=== PATIENT | male | born 1990 | race Caucasian/White ===

== ENCOUNTER 2023-09-09 12:19 | Inpatient (IN) | payer OTHER ==
--- OUTSIDE RECORDS SUMMARY | 2023-09-09 12:22 | XMS REPORT | Continuity of Care Document ---
Author Name Unknown Address [address] [facility] [address] th[address] Address [address] [facility] 1 [address] [place] [address] Care Team Providers Care Customer Service Voice Name Role Phone AMRIK Attending Clinician Unavailable AMRIK Admitting Clinician Unavailable Encounters Start Date/Time End Date/Time Encounter Type Admission Type Attending Clinicians Care Facility Care Department Encounter ID Source 2021-11-14 03:07:00 2021-11-14 03:07:00 Outpatient KRISTINA KELSEY KSCARLOS [facility] [id number] J[address] [facility]
[2023-09-09] MEDS ORDERED: MORPHINE 4 MG/ML SYR ONE (12:39)
[2023-09-09] MEDS ORDERED: ONDANSETRON 4 MG/2 ML VIAL ONE (12:39)
[2023-09-09] MEDS ORDERED: NA CHLORIDE 0.9% 1,000 ML ONE ×2 (12:39→14:07)
[2023-09-09] MEDS ORDERED: KETOROLAC 30 MG/ML INJ ONE (12:39)
[2023-09-09 12:52] LABS: Absolute Basophils 0.1 K/uL (0-0.5); Absolute Lymphocytes (CBC) 1.9 K/uL (0.7-4.9); Absolute Monocytes 1.1 K/uL (0.1-1.3); Absolute Neutrophil 11.8 K/uL (1.8-8.0); Basophils % 0.3 % (0-1.3); Eosinophils % 0.2 % (0-4.4); Hematocrit 43.4 % (39.6-49.0); Hemoglobin 14.6 g/dL (13.6-17.9); Lymphocytes % 12.6 % (15.3-44.8); MCHC 33.7 g/dL (32.0-36.0); MPV 7.9 fL (7.6-11.3); Monocytes % 7.5 % (3.3-12.3); Neutrophils % 79.4 % (41.7-73.7); Platelets 394 thou/uL (152-406); RBC Red Blood Cell Count 4.56 M/uL (4.33-5.43); Red Cell Distribution Width 13.7 % (12.1-15.2)
[2023-09-09 13:10] LABS: Albumin 4.1 g/dL (3.4-5.0); Albumin/Globulin Ratio 1.1 (1.1-1.8); Anion Gap 4.5 mEq/L (5.0-15.0); Bilirubin Total 0.9 mg/dL (0.2-1.0); Globulin 3.7 g/dL (2.3-3.5); Potassium 3.5 mEq/L (3.5-5.1); Protein, Total 7.8 g/dL (6.4-8.2)
--- NOTE | 2023-09-09 13:25 | RAD REPORT ---
EXAM DESCRIPTION: CTAbdomen Pelvis W Contrast - 09/09/2023 12:55 pm CLINICAL HISTORY: Abdominal pain. ABD PAIN COMPARISON: CT ABD PELVIS W CONTRAST dated 12/10/2008 TECHNIQUE: Biphasic CT imaging of the abdomen and pelvis was performed with 100 ml non-ionic IV cont rast. All CT scans are performed using dose optimization technique as appropriate and may include automated exposure control or mA/KV adjustment according to patient size. FINDINGS: The lung bases are clear. The liver, spleen, pancreas, adrenal glands are within normal limits. There is a 5 mm stone in the pr oximal left ureter resulting in mild to moderate left hydronephrosis. Punctate calculi present calice s of the right kidney. No bowel obstruction, free air, free fluid or abscess. The appendix is not identified as a discrete structure, however, no secondary findings of appendicitis are identified. No evidence of significan t lymphadenopathy. No suspicious bony findings. IMPRESSION: 5 mm calculus is present proximal left ureter resulting in mild left hydronephrosis. Punctate calculi present calices of the right kidney. No right-sided hydronephrosis.
[2023-09-09] MEDS ORDERED: FENTANYL CITR 100 MCG/2 ML ONE (13:29)
[2023-09-09] MEDS ORDERED: HYDROMORPHONE HCL 1 MG/ML INJ ONE ×2 (14:07→15:59)
--- NOTE | 2023-09-09 14:12 | ER ---
Nurse's Notes [facility] Name: Reji Holloway Age: 33 yrs Sex: Male : 1990 Arrival Date: 09/09/2023 Time: 12:19 Bed 13 Private MD: Diagnosis: Calculus of ureter Presentation: 09/08 12:25 Chief complaint: Patient states: "I think my kidney stone is trying to pass" pt c/o as6 left flank pain. Coronavirus screen: At this time, the client does not indicate any symptoms associated with coronavirus-19. Ebola Screen: No symptoms or risks identified at this time. Initial Sepsis Screen: Does the patient meet any 2 criteria? No. Patient's initial sepsis screen is negative. Does the patient have a suspected source of infection? No. Patient's initial sepsis screen is negative. Risk Assessment: Do you want to hurt yourself or someone else? Patient reports no desire to harm self or others. Onset of symptoms was July 07, 2023. 12:25 Method Of Arrival: Ambulatory as6 12:25 Acuity: ADAL 3 as6 Triage Assessment: 12:28 General: Appears uncomfortable, Behavior is cooperative. Pain: Complains of pain in as6 left flank. Historical: - Allergies: 12:28 No Known Allergies; as6 - Home Meds: 12:28 None [Active]; as6 - PMHx: 12:28 None; as6 - PSHx: 12:28 Lithotripsy; as6 - Immunization history:: Adult Immunizations not up to date. - Infectious Disease History:: Denies. - Social history:: Smoking status: Patient reports the use of cigarette tobacco products, smokes one-half pack cigarettes per day. Screenin:48 [facility] ED Fall Risk Assessment (Adult) History of falling in the last 3 months, me1 including since admission No falls in past 3 months (0 pts) Confusion or Disorientation No (0 pts) Intoxicated or Sedated No (0 pts) Impaired Gait No (0 pts) Mobility Assist Device Used No (0 pt) Altered Elimination No (0 pt) Score/Fall Risk Level 0 - 2 = Low Risk Maintained a safe environment, Provided non-skid footwear, Hourly rounding (assess needs \\T\\ fall precautionary measures) done. Abuse screen: Denies threats or abuse. Nutritional screening: No deficits noted. Tuberculosis screening: No symptoms or risk factors identified. Assessment: 12:48 General: Appears uncomfortable, ill, well groomed, well developed, well nourished, me1 Behavior is calm, cooperative, appropriate for age, Reports left flank pain 10/10, sharp with n/v. Pain: Complains of pain in back and left flank Pain does not radiate. Pain currently is 10 out of 10 on a pain scale. Quality of pain is described as sharp, shooting, Pain began gradually, Is continuous. Neuro: Level of Consciousness is awake, alert, obeys commands, Oriented to person, place, time, situation, Appropriate for age. Cardiovascular: Capillary refill < 3 seconds Patient's skin is warm and dry. Respiratory: Airway is patent Respiratory effort is even, unlabored, Respiratory pattern is regular, symmetrical. GI: Bowel sounds present X 4 quads. Abd is soft X 4 quads Reports nausea, vomiting. : Reports pain in left flank(s). EENT: No signs and/or symptoms were reported regarding the EENT system. Derm: Skin is intact, is healthy with good turgor, Skin is pink, warm \\T\\ dry. Musculoskeletal: No signs and/or symptoms reported regarding the musculoskeletal system. 14:39 Reassessment: Patient appears in no apparent distress at this time. No changes from kc6 previously documented assessment. Patient and/or family updated on plan of care and expected duration. Pain level reassessed. Patient is alert, oriented x 3, equal unlabored respirations, skin warm/dry/pink. Patient states symptoms have not improved. 15:35 Reassessment: Patient appears in no apparent distress at this time. No changes from kc6 previously documented assessment. Patient and/or family updated on plan of care and expected duration. Pain level reassessed. Patient is alert, oriented x 3, equal unlabored respirations, skin warm/dry/pink. Vital Signs: 12:25 BP 136 / 91; Pulse 85; Resp 16 S; Temp 97.7(O); Pulse Ox 100% on R/A; Weight 68.04 kg as6 (R); Height 5 ft. 11 in. (R); Pain 7/10; 14:39 BP 146 / 90; Pulse 76; Resp 18 S; Pulse Ox 99% on R/A; kc6 15:36 Pulse 55; Resp 16 S; Pulse Ox 97% on R/A; kc6 12:25 Body Mass Index 20.92 (68.04 kg, 180.34 cm) as6 12:25 Pain Scale: Adult as6 ED Course: 12:21 Patient arrived in ED. ec2 12:21 Fabian Roberts MD is Attending Physician. ec2 12:28 Triage completed. as6 12:29 Arm band placed on. as6 12:47 CBC with Diff Sent. me1 12:47 CMP Sent. me1 12:47 Lipase Sent. me1 12:47 Initial lab(s) drawn, by me, sent to lab. Inserted saline lock: 20 gauge in right me1 antecubital area, using aseptic technique. 12:48 Patient has correct armband on for positive identification. Bed in low position. Call ny1 light in reach. Side rails up X 1. Provided Education on: POC. Verbalized understanding. . Client placed on continuous cardiac and pulse oximetry monitoring. NIBP monitoring applied. Pulse ox on. NIBP on. 12:48 No provider procedures requiring assistance completed. me1 12:56 CT Abd/Pelvis - IV Contrast Only In Process Unspecified. EDMS 13:17 Ashley Pierre, RN is Primary Nurse. kc6 14:11 David Ward is Hospitalizing Provider. ec2 Administered Medications: 12:47 Drug: TORadol - Ketorolac IVP 15 mg IVP once Route: IVP; Site: right antecubital; me1 14:39 Follow up: Response: No adverse reaction; Pain is unchanged, physician notified kc6 12:47 Drug: Ondansetron IVP 4 mg IVP once; over 2 minutes Route: IVP; Site: right antecubital;me1 14:39 Follow up: Response: No adverse reaction kc6 12:48 Drug: NS 0.9% IV 1000 ml IV at 1 bolus Per protocol; 1000 mL bolus Route: IV; Rate: 1 me1 bolus; Site: right antecubital; 15:35 Follow up: Response: No adverse reaction; IV Status: Completed infusion; IV Intake: kc6 1000ml 12:48 Drug: morphine IVP or IV 4 mg IVP once over 4 mins Route: IVP; Infused Over: 4 mins; me1 Site: right antecubital; 14:39 Follow up: Response: No adverse reaction; Pain is unchanged, physician notified; RASS: kc6 Alert and Calm (0) 13:33 Drug: fentaNYL (PF) IVP 100 mcg IVP once Route: IVP; Site: right antecubital; nj1 14:39 Follow up: Response: No adverse reaction; Pain is unchanged, physician notified kc6 14:24 Drug: NS 0.9% IV 1000 ml IV at 1 bolus Per protocol; 1000 mL bolus Route: IV; Rate: 1 kc6 bolus; Site: right antecubital; 15:35 Follow up: Response: No adverse reaction; IV Status: Completed infusion; IV Intake: kc6 1000ml 14:25 Drug: HYDROmorphone IVP 1 mg IVP once Route: IVP; Site: right antecubital; kc6 15:35 Follow up: Response: No adverse reaction; Pain is decreased; RASS: Alert and Calm (0) kc6 15:34 Drug: Nicoderm CQ Transdermal Patch 21 mg/24 hr 1 patches Transdermal once {Note: RIGHT kc6 OUTER ARM.} Route: Transdermal; Site: affected area; 15:34 Drug: Flomax PO 0.4 mg PO once Route: PO; kc6 15:34 Drug: Promethazine IVP 12.5 mg IVP once Route: IVP; Site: right antecubital; kc6 Medication: 12:48 VIS not applicable for this client. me1 Intake: 15:35 IV: 1000ml; Total: 1000ml. kc6 15:35 IV: 1000ml; Total: 2000ml. kc6 Outcome: 14:11 Decision to Hospitalize by Provider. ec2 16:35 Patient left the ED. aa5 Signatures: Dispatcher [employer] Darling Stanley RN RN aa5 Inocencio Grant RN RN as6 Ashley Pierre RN RN kc6 Nasra Beck RN RN nj1 Trina Bonilla RN RN me1 Fabian Roberts MD MD ec2
--- NOTE | 2023-09-09 14:12 | EDPHYS ---
Physician Documentation [facility] Name: Reji Holloway Age: 33 yrs Sex: Male : 1990 Arrival Date: 09/09/2023 Time: 12:19 Bed 13 Private MD: ED Physician Fabian Roberts HPI: 09/08 12:32 This 33 yrs old Male presents to ER via Ambulatory with complaints of ec2 Possible Kidney Stone. 12:32 Patient arrives today for left-sided abdominal pain and left-sided flank pain. Patient ec2 reports ongoing symptoms for several days. Patient reports history of kidney stones. Reports associated nausea. Patient reports no fevers or chills. Denies any urinary complaints.. Historical: - Allergies: 12:28 No Known Allergies; as6 - Home Meds: 12:28 None [Active]; as6 - PMHx: 12:28 None; as6 - PSHx: 12:28 Lithotripsy; as6 - Immunization history:: Adult Immunizations not up to date. - Infectious Disease History:: Denies. - Social history:: Smoking status: Patient reports the use of cigarette tobacco products, smokes one-half pack cigarettes per day. ROS: 12:32 Constitutional: as per hpi ec2 Exam: 12:32 Constitutional: GEN: NAD Head: atraumatic Eyes: EOMI Ears: External ears are ec2 normal. CV: regular rate LUNGS: no respiratory distress ABD: non-distended, soft, left sided abdominal TTP, left flank TTP. SKIN: no evidence of rashes MSK: no evidence of trauma NEURO: moves all extremities equally Vital Signs: 12:25 BP 136 / 91; Pulse 85; Resp 16 S; Temp 97.7(O); Pulse Ox 100% on R/A; Weight 68.04 kg as6 (R); Height 5 ft. 11 in. (R); Pain 7/10; 14:39 BP 146 / 90; Pulse 76; Resp 18 S; Pulse Ox 99% on R/A; kc6 15:36 Pulse 55; Resp 16 S; Pulse Ox 97% on R/A; kc6 12:25 Body Mass Index 20.92 (68.04 kg, 180.34 cm) as6 12:25 Pain Scale: Adult as6 MDM: 12:32 Patient medically screened. ec2 12:32 Data reviewed: vital signs. ED course: Patient arrives today for left flank pain. ec2 Examination remarkable for abdominal findings as above. Will obtain lab work, urine studies, CT imaging and treat the patient symptoms. Evaluating for urolithiasis, pyelonephritis, diverticulitis.. 13:03 ED course: CT of the abd/pelvis independently reviewed and interpreted by me, pertinent ec2 findings include ureteral stone approximately 6 mm in size with hydroureter. Will give the patient additional fentanyl for pain control. Rest of CT imaging result per radiology.. 13:08 ED course: CBC shows leukocytosis.. ec2 13:16 ED course: Metabolic profile shows appropriate electrolytes and renal function. Lipase ec2 within normal ranges. . 09/08 12:32 Order name: CBC with Diff; Complete Time: 13:08 ec2 09/08 12:32 Order name: CMP; Complete Time: 13:16 ec2 09/08 12:32 Order name: Lipase; Complete Time: 13:16 ec2 09/08 12:32 Order name: Urinalysis w/ reflexes; Complete Time: 14:45 ec2 09/08 12:32 Order name: CT Abd/Pelvis - IV Contrast Only; Complete Time: 13:29 ec2 09/08 12:32 Order name: IV Saline Lock; Complete Time: 12:47 ec2 09/08 12:32 Order name: Labs collected and sent; Complete Time: 12:47 ec2 09/08 13:31 Order name: Straight Cath - Urine; Complete Time: 14:24 ec2 Administered Medications: 12:47 Drug: TORadol - Ketorolac IVP 15 mg IVP once Route: IVP; Site: right antecubital; me1 14:39 Follow up: Response: No adverse reaction; Pain is unchanged, physician notified kc6 12:47 Drug: Ondansetron IVP 4 mg IVP once; over 2 minutes Route: IVP; Site: right antecubital;me1 14:39 Follow up: Response: No adverse reaction kc6 12:48 Drug: NS 0.9% IV 1000 ml IV at 1 bolus Per protocol; 1000 mL bolus Route: IV; Rate: 1 me1 bolus; Site: right antecubital; 15:35 Follow up: Response: No adverse reaction; IV Status: Completed infusion; IV Intake: kc6 1000ml 12:48 Drug: morphine IVP or IV 4 mg IVP once over 4 mins Route: IVP; Infused Over: 4 mins; me1 Site: right antecubital; 14:39 Follow up: Response: No adverse reaction; Pain is unchanged, physician notified; RASS: kc6 Alert and Calm (0) 13:33 Drug: fentaNYL (PF) IVP 100 mcg IVP once Route: IVP; Site: right antecubital; nj1 14:39 Follow up: Response: No adverse reaction; Pain is unchanged, physician notified kc6 14:24 Drug: NS 0.9% IV 1000 ml IV at 1 bolus Per protocol; 1000 mL bolus Route: IV; Rate: 1 kc6 bolus; Site: right antecubital; 15:35 Follow up: Response: No adverse reaction; IV Status: Completed infusion; IV Intake: kc6 1000ml 14:25 Drug: HYDROmorphone IVP 1 mg IVP once Route: IVP; Site: right antecubital; kc6 15:35 Follow up: Response: No adverse reaction; Pain is decreased; RASS: Alert and Calm (0) kc6 15:34 Drug: Nicoderm CQ Transdermal Patch 21 mg/24 hr 1 patches Transdermal once {Note: RIGHT kc6 OUTER ARM.} Route: Transdermal; Site: affected area; 15:34 Drug: Flomax PO 0.4 mg PO once Route: PO; kc6 15:34 Drug: Promethazine IVP 12.5 mg IVP once Route: IVP; Site: right antecubital; kc6 Disposition Summary: 09/09/23 14:11 Hospitalization Ordered Notes: Hospitalization Status: Inpatient Admission ec2 Provider: David Ward ec2 Location: Telemetry/MedSurg (Inpatient) ec2 Condition: Stable ec2 Problem: new ec2 Symptoms: have improved ec2 Bed/Room Type: Standard ec2 Room Assignment: 203(09/09/23 15:34) bd Diagnosis - Calculus of ureter ec2 Forms: - Medication Reconciliation Form ec2 - SBAR form ec2 - Leadership Thank You Letter ec2 Signatures: Dispatcher [employer] EDMS Marissa Diaz Lee, ANGIOGRAPHER-C ANGIOGRAPHER-Cla1 Inocencio Grant RN RN as6 Ashley Pierre RN RN kc6 Nasra Beck RN RN nj1 Trina Bonilla RN RN me1 Fabian Roberts MD MD ec2 Corrections: (The following items were deleted from the chart) 12:33 12:33 Abdomen Pelvis W Con+CT.RAD.BRZ ordered. EDMS EDMS 13:42 13:03 ED course: CT of the pelvis independently reviewed and interpreted by me, ec2 pertinent findings from September include ureteral stone approximately 6 mm in size with hydroureter. Will give the patient additional fentanyl for pain control. Rest of CT imaging result per radiology.. ec2 15:34 14:11 ec2 bd
[2023-09-09 14:40] LABS: Calcium Oxalate Crystals- Ur Few /HPF (None Seen); Sqamous Epithelial <5 /HPF (None Seen); Urine Bacteria <20 /HPF (<20); Urine Bilirubin NEGATIVE (Negative); Urine Blood 2+ (Negative); Urine Clarity Extremely Turbid (Clear); Urine Color Yellow (Yellow); Urine Culture Reflex Order NOT NEEDED; Urine Glucose NEGATIVE (Negative); Urine Ketones NEGATIVE (Negative); Urine Microscopic Reflex YN ORDER UMIC; Urine Mucus 2+ /HPF (None Seen); Urine Nitrite NEGATIVE (Negative); Urine Protein TRACE (Negative); Urine RBC >50 /HPF (None Seen); Urine Urobilinogen Normal (Normal); Urine WBC Clump Few /HPF (None Seen); Urine Yeast (Budding) Trace /HPF (None Seen)
--- NOTE | 2023-09-09 15:14 | P.HP ---
Certification for Inpatient Patient admitted to: Observation With expected LOS: <2 Midnights Patient will require the following post-hospital care: None Practitioner: I am a practitioner with admitting privileges, knowledge of patient current condition, hospital course, and medical plan of care. Services: Services provided to patient in accordance with Admission requirements found in Title 42 Section 412.3 of the Code of Federal Regulations Patient History Date of Service: 09/09/23 Reason for admission: Ureterolithiasis, intractable pain History of Present Illness: 33-year-old otherwise healthy male presented to the emergency department with chief complaint of left flank pain. He reports having multiple kidney stones in the past approximately 1/year since age of 18. He has previously been told they are calcium oxalate stones, at one time he has required ureteral stent placement. He was evaluated in the emergency department and found to have a 5.1 mm left proximal ureteral stone resulting in mild left hydronephrosis. Renal function intact, white blood cell count 14.8. Patient was given Toradol, morphine, Dilaudid and has still significant pain. ED provider wishes to admit under observation for ureterolithiasis with intractable pain. Allergies No Known Drug Allergies Allergy (Unverified 08/17/14 19:52) Unknown - Past Medical/Surgical History -: Kidney stones -: Ureteral stent placement Psychosocial/ Personal History: Lives at home, alone - Family History Family History: Reviewed- Non-Contributory - Social History Smoking Status: Current every day smoker Counseled patient to stop smoking for: less than 10 minutes Smoking therapy provided: Yes Alcohol use: No CD- Drugs: No Caffeine use: Yes Place of Residence: Home Review of Systems 10-point ROS is otherwise unremarkable Gastrointestinal: Nausea, Vomiting, Abdominal Pain Physical Examination - Physical Exam General: Alert, In no apparent distress, Oriented x3 HEENT: Atraumatic, PERRLA, EOMI Neck: Supple, 2+ carotid pulse no bruit Respiratory: Clear to auscultation bilaterally, Normal air movement Cardiovascular: Regular rate/rhythm, Normal S1 S2 Gastrointestinal: Normal bowel sounds, No tenderness Musculoskeletal: No tenderness Integumentary: No rashes Neurological: Normal gait, Normal speech, Normal strength at 5/5 x4 extr, Normal tone - Studies Laboratory Data (last 24 hrs) 09/09/23 09/09/23 12:35 12:35 WBC 14.80 H Hgb 14.6 Hct 43.4 Plt Count 394 Sodium 135 L Potassium 3.5 BUN 12 Creatinine 1.06 Glucose 115 H Total Bilirubin 0.9 AST 23 ALT 74 H Alkaline Phosphatase 101 Lipase 25 Assessment and Plan - Plan Assessment: 5 mm left ureterolithiasis with mild hydronephrosis, intractable pain Plan: 5 mm left ureterolithiasis with mild hydronephrosis, intractable pain Continue IV fluids, as needed pain medications and antiemetics Urology consulted Patient history of multiple stones in the past, was previously told they are calcium oxalate stones Will start flomax DVT PPX: SCD Code status: Full Discharge Plan: Home Plan to discharge in: 24 Hours - Advance Directives Does patient have a Living Will: No Does patient have a Durable POA for Healthcare: No - Code Status/Comfort Care Code Status Assessed: Yes (Full code) Critical Care: No Time Spent Managing Pts Care (In Minutes): 50
[2023-09-09] MEDS ORDERED: PROMETHAZINE INJ 25 MG/ML AMP ONE (15:26)
[2023-09-09] MEDS ORDERED: TAMSULOSIN 0.4 MG SR CAP ONE (15:26)
[2023-09-09] MEDS ORDERED: NICOTINE 21 MG/PAT TD ONE (15:27)
[2023-09-09] MEDS: HYDROMORPHONE HCL 1 MG/ML INJ IV PRN (16:03)
[2023-09-09 17:02] VITALS: BMI 20.9
[2023-09-09] MEDS: NA CHLORIDE 0.9% 1,000 ML IV SCH (17:07)
[2023-09-09] MEDS: ONDANSETRON 4 MG/2 ML VIAL IV PRN (20:14)
[2023-09-09] MEDS: KETOROLAC 30 MG/ML INJ IV PRN (21:46)
[2023-09-10 06:07] LABS: Absolute Eosinophils 0.1 K/uL (0-0.5); Absolute Lymphocytes (CBC) 1.5 K/uL (0.7-4.9); Absolute Monocytes 2.2 K/uL (0.1-1.3); Absolute Neutrophil 15.7 K/uL (1.8-8.0); Basophils % 0.2 % (0-1.3); Eosinophils % 0.3 % (0-4.4); Hematocrit 39.2 % (39.6-49.0); Hemoglobin 13.2 g/dL (13.6-17.9); Lymphocytes % 7.9 % (15.3-44.8); MCH 31.9 pg (27.0-35.0); MCHC 33.7 g/dL (32.0-36.0); MCV 94.7 fL (80-100); MPV 7.9 fL (7.6-11.3); Neutrophils % 80.6 % (41.7-73.7); Platelets 349 thou/uL (152-406); RBC Red Blood Cell Count 4.14 M/uL (4.33-5.43); Red Cell Distribution Width 13.7 % (12.1-15.2)
[2023-09-10 06:26] LABS: Anion Gap 5.7 mEq/L (5.0-15.0); Potassium 3.7 mEq/L (3.5-5.1)
[2023-09-10] MEDS: TAMSULOSIN 0.4 MG SR CAP PO SCH (07:55)
[2023-09-10] MEDS: POTASSIUM CL SA 10 MEQ TAB PO ONE (07:55)
--- NOTE | 2023-09-10 11:38 | P.PN ---
Date of Service: 09/10/23 Subjective: still with significant pain although it seems be lower and coming around the front of his abd Denies vomiting No acute events overnight ROS: 10 point ROS as noted above, otherwise negative Physical exam GEN: Alert, oriented, NAD HEENT: Normal conjunctiva, sclera anicteric CV: Regular rate and rhythm, no edema Pulm: Nonlabored respirations on room air ABD: Soft, nontender, nondistended MSK: No joint tenderness Integumentary: No rashes Neuro: Normal speech, normal affect Vitals reviewed Assessment: 5 mm left ureterolithiasis with mild hydronephrosis, intractable pain Plan: 5 mm left ureterolithiasis with mild hydronephrosis, intractable pain Continue IV fluids, as needed pain medications and antiemetics Urology consulted- await recs Patient history of multiple stones in the past, was previously told they are calcium oxalate stones Continue flomax WBC up to 19k today, start on empiric Rocephin DVT PPX: SCD Code status: Full Discharge Plan: Home Plan to discharge in: 24 Hours Time Spent Managing Pts Care (In Minutes): 35
[2023-09-10] MEDS: CEFTRIAXONE 1,000 MG in NA CHLORIDE 0.9% 50 ML IVPB ONE (11:54)
[2023-09-10] MEDS: ACETAMINOPHEN 325 MG TABLET PO PRN (13:55)
[2023-09-10] MEDS: NA CHLORIDE 0.9% 1,000 ML ONE (15:40)
[2023-09-10] MEDS ORDERED: FENTANYL CITR 100 MCG/2 ML ONE (16:18)
[2023-09-10] MEDS ORDERED: MIDAZOLAM HCL 2 MG/2 ML INJ ONE (16:18)
[2023-09-10] MEDS ORDERED: LIDOCAINE 1% MPF 5 ML VIAL ONE (16:18)
[2023-09-10] MEDS ORDERED: propofoL 200 MG/20 ML VIAL IV ONE (16:18)
[2023-09-10] MEDS ORDERED: ONDANSETRON 4 MG/2 ML VIAL ONE (16:18)
--- NOTE | 2023-09-10 16:24 | P.CNS ---
Date of Consult: 09/10/23 Reason for Consult: Left flank pain Chief Complaint: Ureterolithiasis, intractable pain History of Present Illness: 33-year-old man with history of anxiety and depression, currently unmedicated, with history of multiple episodes of recurrent ureterolithiasis, about 1-2 episodes per year since he was 20 years old, who presents having developed some dysuria associated with left hemiscrotal pain and left flank pain on Saturday. This progressed to involve gross hematuria. He also had some nausea and vomiting but denied any fever or chills. The pain was as severe as 8 out of 10 in intensity, and ultimately prompted him coming to the emergency department on Saturday. He had another stone event in April 2023. Past medical history: As above Past surgical history: Right ureteroscopy with laser lithotripsy 2 years ago Family history noncontributory No known drug allergies He is a former smoker of 15 years 1/2 pack/day and recently stopped smoking marijuana Examination: Well-appearing and in no acute distress Alert, awake, oriented x 3 No dyspnea or sign of respiratory distress Pulses 2+ radial and regular Abdomen soft and nontender No lower extremity tenderness I reviewed the images of the CT scan in detail and revealed the presence of the following: Right side3 to 4 mm midpole calculus and 2 mm lower pole calculus Left side-6 mm proximal ureteral calculus without nephrolithiasis Radiologist impression: 5 mm calculus present in the proximal left ureter resulting in mild left hydronephrosis. Punctate calculi present calyces of the right kidney. No right-sided hydronephrosis. 09/09/2023 to 09/10/2023 laboratory analyses: WBC 14.8 increased to 19.5, hemoglobin 13.2, platelets 349, creatinine 1.12, UA micro 5-10 WBCs per hpf but negative nitrite/leukocyte Estrace Assessment and recommendation: 33-year-old man with history of anxiety and depression, currently unmedicated, with history of multiple episodes of recurrent ureterolithiasis, about 1-2 episodes per year since he was 20 years old, with left proximal ureterolithiasis with intractable left flank pain, gross hematuria with dysuria suspicious for complicated infection. -I counseled the patient that given the suspicion for complicating infection, while he would rather avoid having a stent placed, and having had apparently a hard time with it in the past, in the setting of impending sepsis, the stent was necessary to avoid the development of pyelonephritic sepsis. Alternatively, he could have a percutaneous nephrostomy tube placed, but he was not interested in that approach. -Cystoscopy with left retrograde pyelography and left ureteral stent placement will be planned. Risk of the procedure were discussed to include urethral stricture, worsening of infection/sepsis, injury to the ureter, failure to achieve desired approach of successful stent placement and need for percutaneous nephrostomy tube. Allergies No Known Drug Allergies Allergy (Verified 09/09/23 19:15) Unknown Home medications list reviewed: Yes Home Medications: NK [No Home Meds] 09/09/23 - Past Medical/Surgical History Diabetic: No -: Kidney stones -: Ureteral stent placement Psychosocial/ Personal History: Lives at home, alone - Social History Smoking Status: Current every day smoker Alcohol use: No CD- Drugs: No Caffeine use: Yes Place of Residence: Home Physical Examination Temp Pulse Resp BP Pulse Ox 98.4 F 84 17 127/76 99 09/10/23 12:00 09/10/23 12:00 09/10/23 12:00 09/10/23 12:00 09/10/23 12:00 - Problems (1) Ureterolithiasis Current Visit: Yes Status: Acute (2) Left flank pain Current Visit: Yes Status: Acute (3) Complicated UTI (urinary tract infection) Current Visit: Yes Status: Acute (4) Gross hematuria Current Visit: Yes Status: Acute Critical Care: No Time Spent Managing Pts care (In Minutes): 30
--- NOTE | 2023-09-10 17:53 | P.OP ---
Date of Service: 09/10/23 Preoperative diagnoses: Left ureterolithiasis Recurrent nephrolithiasis Intractable left flank pain Gross hematuria Suspected complicated UTI Postoperative diagnoses: Impacted proximal ureteral calculus Suspected dysfunctional voiding Left ureterolithiasis Recurrent nephrolithiasis Intractable left flank pain Gross hematuria Suspected complicated UTI Principal procedures: Cystoscopy Left retrograde pyelography Complex attempted left 4.8 Fr x 26 cm and 6 Fr x 26 cm JJ ureteral stent placements, failed Indication for procedure: 33-year-old man with history of anxiety and depression, currently unmedicated, with history of multiple episodes of recurrent ureterolithiasis, about 1-2 episodes per year since he was 20 years old, with left proximal ureterolithiasis with intractable left flank pain, gross hematuria with dysuria suspicious for complicated infection. Procedure note: The patient was consented in the preoperative holding area before being transferred to the operative suite where general anesthesia was induced. He was being treated with ceftriaxone IV antimicrobial therapy as an admitted inpatient, and pneumoboots were provided for DVT prophylaxis. He was placed in the lithotomy position, padded and secured to the table appropriately. His genitalia was prepped with Hibiclens and he was draped in standard fashion. The case was begun using a 22 Bahamian rigid cystoscope to traverse the urethra and into the bladder with ease. The bladder was markedly distended and filled with urine. I decompressed the bladder of fluid and urine, but there was some diminished tone with incomplete emptying observed despite attempts to manually express the remainder of the urine out of his bladder via the cystoscope. I then identified the left ureteral orifice which was orthotopic in location of the trigone and cannulated it with the tip of the 5 Bahamian ureteral access catheter. Left retrograde pyelography: Using a 70: 30 mixture of Omnipaque and saline, contrast was injected via the lumen of the 5 Bahamian ureteral access catheter and did propagate up the distal into the mid before entering the proximal ureter where it made a point of obstruction in the proximal ureter beyond which only a small amount of contrast but emanate. I thus advance the 5 Bahamian ureteral access catheter further into the ureter beneath the stone, which was radiopaque, and again injected in a bolus of contrast, this time delineating the calyces and partially the renal pelvis. I thus advanced a sensor wire via the 5 Bahamian ureteral access catheter and it did seem to navigate beyond the point of stone related obstruction and enter the renal pelvis where it seemed to coil in what was putatively the upper pole calyx. Because I did not like the way the wire seen to coil, I wanted to confirm it was indeed intraluminal and intra calyceal; so I attempted to advance the 5 Bahamian ureteral access catheter over the wire beyond the point of stone related obstruction and again injected contrast. However, despite attempts, the 5 Bahamian ureteral access catheter would not pass over the wire beyond the point of stone related obstruction, stopping at that point consistently as evidenced fluoroscopically. As a result, I removed the sensor wire and injected dilute bolus of contrast forcefully to try to dislodge the stone from its impacted position. I then again replaced the sensor wire, and it did coil definitively and convincingly within the upper pole calyx of the kidney within the ureteral lumen the entire way. As a result, I again attempted to pass a 5 Bahamian ureteral access catheter without success. Recognizing I would never be able to pass a 6 Bahamian stent if the 5 Bahamian ureteral access catheter would not pass, I then manually tapered the tip of the 5 Bahamian ureteral access catheter, essentially creating a whistle-tip, and again attempted to pass it beyond the stone related obstruction. After several manipulations, I was eventually able to pass the 5 Bahamian ureteral access catheter, modified, over the wire and into the upper pole of the kidney. I removed the wire confirming the appropriate position and again injected contrast delineating the intraluminal location within the calyces. So I left the 5 Bahamian ureteral access catheter in place for a period of time, hoping it would dilate the tract a bit, before eventually removing the 5 Bahamian ureteral access catheter. I then attempted to pass a 6 Bahamian by 26 cm double-J ureteral stent, but it was thwarted at the level of the radiodense stone related obstruction in the proximal ureter. After several attempts with this, I then attempted to pass a 4.8 Bahamian double-J ureteral stent. Unfortunately, the 4.8 Bahamian stent would also not pass despite multiple manipulation attempts. I even attempted to taper the tip of the 4.8 Bahamian stent to try to get it to pass, but this was also unsuccessful. I again tried with the 6 Bahamian stent, tapered at the tip, but this also would not pass beyond the point of obstruction. Eventually, after nearly 1 hour of surgical manipulation and attempts, it was clear it would not be possible to stent his left ureter due to impaction of the left ureteral calculus; so I removed the stent and wire and decompressed his bladder of fluid and urine. He was then awakened from general anesthesia, transferred to a stretcher, and then transferred to the recovery room in good condition. Complications: None Discharge disposition: He will require left percutaneous nephrostomy tube placement before follow-up definitive management of his left ureterolithiasis can be achieved via ureteroscopy and laser lithotripsy. Given his frequent recurrent stone formation and passage events and the presence of the impacted calculus, he either has a stricture already or is at very high risk of forming one. He will be counseled as such on follow-up, which should occur after he has the left nephrostomy tube placed +/- left nephroureteral stent. As far as the incomplete emptying of his bladder suggestive of underlying voiding dysfunction, given his age, it is unlikely to be obstruction due to BPH. We will evaluate and discuss this further on follow-up.
[2023-09-10 18:04] VITALS: O2SAT 99
--- NOTE | 2023-09-10 20:42 | RAD REPORT ---
EXAM DESCRIPTION: RAD - Urethrocystogrphy Retrograde - 09/10/2023 5:58 pm CLINICAL HISTORY: RIGHT STENT COMPARISON: None available. FINDINGS: Twenty-nine Images were sent to PACS, documenting fluoroscopy use during right ureterograp hy and attempted stent placement procedure. No radiologist was available for the procedure, nor will any image interpretation he provided. Please refer to the procedural report for additional details. Fluoroscopy time: 0.9 Minutes. IMPRESSION: Documentation of fluoroscopy utilization as above.
[2023-09-10] MEDS: NICOTINE 14 MG/PAT TD SCH (21:21)
[2023-09-11 04:02] LABS: Absolute Lymphocytes (CBC) 1.6 K/uL (0.7-4.9); Absolute Neutrophil 13.7 K/uL (1.8-8.0); Basophils % 0.4 % (0-1.3); Eosinophils % 0.2 % (0-4.4); Hematocrit 36.9 % (39.6-49.0); Hemoglobin 12.6 g/dL (13.6-17.9); Lymphocytes % 9.3 % (15.3-44.8); MCH 32.3 pg (27.0-35.0); MCHC 34.1 g/dL (32.0-36.0); MCV 94.7 fL (80-100); MPV 8.2 fL (7.6-11.3); Monocytes % 11.2 % (3.3-12.3); Neutrophils % 78.9 % (41.7-73.7); Platelets 321 thou/uL (152-406); Red Cell Distribution Width 13.9 % (12.1-15.2)
[2023-09-11 04:03] LABS: Absolute Basophils 0.1 K/uL (0-0.5); Absolute Monocytes 1.9 K/uL (0.1-1.3)
[2023-09-11 04:19] LABS: Anion Gap 6.5 mEq/L (5.0-15.0); Potassium 3.5 mEq/L (3.5-5.1)
[2023-09-11] MEDS: POTASSIUM CL SA 10 MEQ TAB PO ONE (08:18)
[2023-09-11] MEDS: ACETAMINOPHEN 325 MG TABLET PO ONE (08:19)
[2023-09-11] MEDS: CEFTRIAXONE 1,000 MG in NA CHLORIDE 0.9% 50 ML IVPB SCH (08:21)
[2023-09-11] MEDS: HYDROMORPHONE HCL 0.5 MG/0.5 ML INJ IV PRN (08:27)
[2023-09-11 08:30] VITALS: BP 140/79; TEMP 98.8
[2023-09-11 10:36] LABS: Specific Gravity 1.013 (1.005-1.030); Sqamous Epithelial None Seen /HPF (None Seen); Urine Bacteria None Seen /HPF (<20); Urine Bilirubin NEGATIVE (Negative); Urine Blood 3+ (Negative); Urine Clarity Clear (Clear); Urine Color Light-Yellow (Yellow); Urine Culture Reflex Order NOT NEEDED; Urine Glucose 1+ (Negative); Urine Ketones TRACE (Negative); Urine Micro Reflex YN NO BILL MICROSCOPIC; Urine Mucus Slight /HPF (None Seen); Urine Nitrite NEGATIVE (Negative); Urine Protein NEGATIVE (Negative); Urine RBC >50 /HPF (None Seen); Urine Urobilinogen Normal (Normal)
[2023-09-11] MEDS: HYDROMORPHONE HCL 1 MG/ML INJ IV PRN (11:11)
--- NOTE | 2023-09-11 11:41 | P.DS ---
Admission Date: 09/10/23 Discharge Date: 09/11/23 Disposition: TRANSFER TO [facility] Discharge Condition: GOOD Reason for Admission: Ureterolithiasis, intractable pain Consultations: Dr. Dawson-Urology Brief History of Present Illness: 33-year-old otherwise healthy male presented to the emergency department with chief complaint of left flank pain. He reports having multiple kidney stones in the past approximately 1/year since age of 18. He has previously been told they are calcium oxalate stones, at one time he has required ureteral stent placement. He was evaluated in the emergency department and found to have a 5.1 mm left proximal ureteral stone resulting in mild left hydronephrosis. Renal function intact, white blood cell count 14.8. Patient was given Toradol, morphine, Dilaudid and has still significant pain. ED provider wishes to admit under observation for ureterolithiasis with intractable pain. Hospital Course: Assessment: 5 mm left ureterolithiasis with mild hydronephrosis, intractable pain Patient was admitted on 09/09/2023 for intractable pain secondary to a 5 mm left proximal ureteral calculus resulting in mild hydronephrosis. On day of admission his white blood cell count was 14.8. Initial UA without concern for infection, patient was treated with IV Dilaudid/Toradol for his pain and given IV fluids/Flomax. On 09/09 patient continued pain and was evaluated by urology, his white blood cell count also increased to 19.5 and at that time he was given empiric antibiotics with Rocephin. Urology took patient to the OR with plans to place a left ureteral stent although the stone was impacted and he was unable to place the stent. Given the patient's elevated white blood cell count, dysuria symptoms and continued pain urology recommends percutaneous nephrostomy to be placed. Transfer was initiated on the evening of 09/09 to [facility] for left nephrostomy tube placement. Morning of 09/10 white was a count down to 17.3, patient with continued pain, has remained afebrile blood cultures and urine culture sent lactate 0.9 renal function remains intact with creatinine of 1.11 Case discussed with hospitalist at [facility], plan to transfer to their facility for percutaneous nephrostomy tubeleft. Patient can be sent back to our facility for further management after nephrostomy tube placement. Vital Signs/Physical Exam: Temp Pulse Resp BP Pulse Ox 98.8 F 87 16 140/79 99 09/11/23 08:00 09/11/23 08:00 09/11/23 11:11 09/11/23 08:00 09/11/23 11:11 General: Alert, In no apparent distress, Oriented x3 HEENT: Atraumatic, PERRLA Neck: Supple, JVD not distended Respiratory: Clear to auscultation bilaterally, Normal air movement Cardiovascular: Regular rate/rhythm, Normal S1 S2 Gastrointestinal: Normal bowel sounds, No tenderness Musculoskeletal: No tenderness Integumentary: No rashes Neurological: Normal speech, Normal tone, Normal affect Laboratory Data at Discharge: WBC 17.30 thou/uL (4.3-10.9) H 09/11/23 02:53 Hgb 12.6 g/dL (13.6-17.9) L 09/11/23 02:53 Hct 36.9 % (39.6-49.0) L 09/11/23 02:53 Plt Count 321 thou/uL (152-406) 09/11/23 02:53 Sodium 138 mEq/L (136-145) 09/11/23 02:53 Potassium 3.5 mEq/L (3.5-5.1) 09/11/23 02:53 BUN 11 mg/dL (7-18) 09/11/23 02:53 Creatinine 1.11 mg/dL (0.70-1.30) 09/11/23 02:53 Glucose 107 mg/dL (74-106) H 09/11/23 02:53 Total Bilirubin 0.9 mg/dL (0.2-1.0) 09/09/23 12:35 AST 23 U/L (15-37) 09/09/23 12:35 ALT 74 U/L (16-61) H 09/09/23 12:35 Alkaline Phosphatase 101 U/L (45-117) 09/09/23 12:35 Lipase 25 U/L (13-75) 09/09/23 12:35 Home Medications: NK [No Home Meds] 09/09/23 Physician Discharge Instructions: Patient was admitted on 09/09/2023 for intractable pain secondary to a 5 mm left proximal ureteral calculus resulting in mild hydronephrosis. On day of admission his white blood cell count was 14.8. Initial UA without concern for infection, patient was treated with IV Dilaudid/Toradol for his pain and given IV fluids/Flomax. On 09/09 patient continued pain and was evaluated by urology, his white blood cell count also increased to 19.5 and at that time he was given empiric antibiotics with Rocephin. Urology took patient to the OR with plans to place a left ureteral stent although the stone was impacted and he was unable to place the stent. Given the patient's elevated white blood cell count, dysuria symptoms and continued pain urology recommends percutaneous nephrostomy to be placed. Transfer was initiated on the evening of 09/09 to [facility] for left nephrostomy tube placement. Morning of 09/10 white was a count down to 17.3, patient with continued pain, has remained afebrile blood cultures and urine culture sent lactate 0.9 renal function remains intact with creatinine of 1.11 Case discussed with hospitalist at [facility], plan to transfer to their facility for percutaneous nephrostomy tubeleft. Patient can be sent back to our facility for further management after nephrostomy tube placement. Diet: npo Activity: Ad antonino Followup: NONE,NONE [Primary Care Provider] - Time spent managing pt's care (in minutes): 35
== END 2023-09-11 11:22 | disposition short-term general hospital (02) | DRG 661 ==
LOC: ER 12:19 → ERHOLD 14:50 → 2ND 15:48 → OBSVTOIN 09-10 18:08
PROVIDERS: ADMIT Internal Medicine; ATTEND Hospitalist
PROC: BT1F1ZZ Fluoroscopy of Left Kidney, Ureter and Bladder using Low Osmolar Contrast (ICD-10-PCS; 2023-09-10)
PROC: 0T778DZ Dilation of Left Ureter with Intraluminal Device, Via Natural or Artificial Opening Endoscopic (ICD-10-PCS; principal; 2023-09-10 16:30)
DX: N13.2 Hydronephrosis with renal and ureteral calculous obstruction (principal); F17.210 Nicotine dependence, cigarettes, uncomplicated; R31.0 Gross hematuria; Z60.2 Problems related to living alone
CPT/HCPCS: 36415; 51610; 74177; 74450; 80048; 80053; 81001; 83605; 83690; 85025; 87040; 96361; 96374; 96375; 99284; G0378; J0696; J1170; J2001; J2250; J2405; J2550; J2704; J3010; J7030; Q9967

== ENCOUNTER 2023-09-12 19:24 | Inpatient (IN) | payer OTHER ==
[2023-09-12 20:30] VITALS: BMI 20.9
--- NOTE | 2023-09-12 20:38 | P.HP ---
Certification for Inpatient Patient admitted to: Inpatient With expected LOS: >2 Midnights Practitioner: I am a practitioner with admitting privileges, knowledge of patient current condition, hospital course, and medical plan of care. Services: Services provided to patient in accordance with Admission requirements found in Title 42 Section 412.3 of the Code of Federal Regulations Patient History Date of Service: 09/12/23 Reason for admission: Left nephrostomy History of Present Illness: Patient is a 33-year-old male who was admitted with left flank pain and was found to have a left ureteral lithiasis and mild hydronephrosis. He was taken to the OR with 4 left ureteral stent placement. Unfortunately, the stone was impacted and the stent was unable to be deployed. For this reason, patient was transferred to [facility] for a left nephrostomy tube. Patient had a left resident replaced at [facility] and has been returned here to [facility]. Allergies No Known Drug Allergies Allergy (Verified 09/09/23 19:15) Unknown Home Medications: NK [No Home Meds] 09/09/23 - Past Medical/Surgical History Diabetic: No -: Kidney stones -: Ureteral stent placement Psychosocial/ Personal History: Lives at home, alone - Social History Alcohol use: No CD- Drugs: No Caffeine use: Yes Physical Examination - Physical Exam General: Acute distress HEENT: Atraumatic, Normocephalic Respiratory: Clear to auscultation bilaterally Cardiovascular: No edema, Normal pulses, Regular rate/rhythm Gastrointestinal: Other (Nephrostomy tube in place) Integumentary: No rashes, No breakdown, No significant lesion Neurological: Normal speech, Sensation intact Assessment and Plan - Problems (Diagnosis) (1) Complicated UTI (urinary tract infection) Current Visit: No Status: Acute (2) Gross hematuria Current Visit: No Status: Acute (3) Left flank pain Current Visit: No Status: Acute (4) Ureterolithiasis Current Visit: No Status: Acute - Plan Assessment Patient is a 33-year-old male with urolithiasis who is just returning from [facility] after placement of left nephrostomy tube. An attempt to place a stent here was unsuccessful. Therefore he required a left nephrostomy tube. I am seeing the patient after his return. He is in a lot of pain. He is also having some nausea. Medications have been reconciled. Left flank and urolithiasis Status post left nephrostomy tube Will continue management as per medicine and urology Resume on empiric antibiotics, antiemetics and pain control - Advance Directives Does patient have a Living Will: No Does patient have a Durable POA for Healthcare: No
[2023-09-12] MEDS: ONDANSETRON 4 MG/2 ML VIAL IV PRN (20:48)
[2023-09-12] MEDS: HYDROMORPHONE HCL 1 MG/ML INJ IV PRN (20:58)
[2023-09-12] MEDS: Levofloxacin 750mg IV 750 MG/150 ML BAG IV SCH (21:00)
[2023-09-12] MEDS: PROMETHAZINE INJ 25 MG/ML AMP IV PRN (22:17)
[2023-09-12 23:01] LABS: Absolute Basophils 0.1 K/uL (0-0.5); Absolute Eosinophils 0.2 K/uL (0-0.5); Absolute Lymphocytes (CBC) 2.4 K/uL (0.7-4.9); Absolute Monocytes 0.8 K/uL (0.1-1.3); Absolute Neutrophil 6.9 K/uL (1.8-8.0); Eosinophils % 1.8 % (0-4.4); Hematocrit 38.8 % (39.6-49.0); Hemoglobin 12.8 g/dL (13.6-17.9); Lymphocytes % 23.2 % (15.3-44.8); MCH 31.7 pg (27.0-35.0); MCHC 33.1 g/dL (32.0-36.0); MCV 95.9 fL (80-100); MPV 7.8 fL (7.6-11.3); Platelets 332 thou/uL (152-406); RBC Red Blood Cell Count 4.04 M/uL (4.33-5.43); Red Cell Distribution Width 13.9 % (12.1-15.2)
[2023-09-12 23:13] LABS: Anion Gap 7.7 mEq/L (5.0-15.0); Phosphorus 3.5 mg/dL (2.5-4.9); Potassium 3.7 mEq/L (3.5-5.1)
[2023-09-13] MEDS: KETOROLAC 30 MG/ML INJ IV PRN (00:02)
--- NOTE | 2023-09-13 07:21 | P.PN ---
Date of Service: 09/13/23 Subjective: feels left sided flank pain improving post operatively; slightly less severe now with some back right sided flank pain that started after attempted stent placement nausea/vomiting continued overnight. Able to tolerate some food / liquids feels dilaudid takes the edge off for ~30 min then pain comes back no BM since surgery. +flatus ROS: 10 point ROS as noted above, otherwise negative Physical Exam: GEN: Alert, oriented, NAD HEENT: Normal conjunctiva, sclera anicteric CV: Regular rate and rhythm, no edema Pulm: Nonlabored respirations on room air, clear bilaterally ABD: Soft, left & right flank pain/tenderness, left nephrostomy tube in place Neuro: Normal speech, normal affect vitals reviewed Problem List: 5 mm left impacted ureterolithiasis with mild hydronephrosis, s/p left nephrostomy tube placement (@[facility]) Recurrent nephrolithiasis Gross hematuria complicated UTI Nausea/vomiting CT abdomen (09/08): 5mm calculus present left ureter with mild hydronephrosis. Punctate calculi present calices of right kidney. No right sided hydro. Urology, Dr. Dawson was consulted last admission. Took patient to the OR with plans to place a left ureteral stent although the stone was impacted and stent was unable to be deployed. Transferred to [facility] for percutaneous left nephrostomy tube placement 09/10. Now back here for continued medical management. Patient reports further imaging after transfer to [facility]. Will request records Blood cx (09/10): NGTD continue empiric levaquin (09/11-) was previously on rocephin PRN analgesics / antiemetics nausea/vomiting continues; reports zofran doesn't help. PRN phenergan VTE: Ambulatory Code: Full Dispo: Home ~2 days Pending cultures, better pain control, remains afebrile
[2023-09-13] MEDS: HYDROMORPHONE HCL 1 MG/ML INJ IV PRN (09:56)
[2023-09-13] MEDS: HYDROCODONE/APAP 5/325 MG TAB PO PRN (13:47)
[2023-09-13] MEDS: NICOTINE 14 MG/PAT TD SCH (17:22)
[2023-09-13 21:51] VITALS: O2SAT 99
[2023-09-14 04:23] LABS: Absolute Basophils 0.1 K/uL (0-0.5); Absolute Eosinophils 0.3 K/uL (0-0.5); Absolute Lymphocytes (CBC) 2.1 K/uL (0.7-4.9); Absolute Monocytes 0.9 K/uL (0.1-1.3); Basophils % 0.9 % (0-1.3); Eosinophils % 2.5 % (0-4.4); Hematocrit 39.3 % (39.6-49.0); Lymphocytes % 18.7 % (15.3-44.8); MCH 31.4 pg (27.0-35.0); MCV 95.2 fL (80-100); MPV 8.3 fL (7.6-11.3); Monocytes % 7.5 % (3.3-12.3); Neutrophils % 70.4 % (41.7-73.7); Nucleated Red Blood Cells % 0.1 % (0-0); Platelets 390 thou/uL (152-406); RBC Red Blood Cell Count 4.13 M/uL (4.33-5.43); Red Cell Distribution Width 13.6 % (12.1-15.2)
[2023-09-14 04:50] LABS: Anion Gap 6.6 mEq/L (5.0-15.0); Magnesium 1.8 mg/dL (1.6-2.4); Potassium 3.6 mEq/L (3.5-5.1)
[2023-09-14] MEDS: MAGNESIUM SULFATE 1 gm IVPB 1 GM/100 ML BAG IV ONE (06:43)
[2023-09-14] MEDS: POTASSIUM CL SA 10 MEQ TAB PO ONE (08:04)
[2023-09-14] MEDS: NALOXEGOL OXALATE 12.5 MG TABLET PO SCH (09:00)
[2023-09-14] MEDS: DOCUSATE NA 100 MG CAP PO SCH (09:18)
[2023-09-14] MEDS: HYDROMORPHONE HCL 1 MG/ML INJ IV PRN ×2 (10:16→17:26)
--- NOTE | 2023-09-14 13:16 | P.PN ---
Date of Service: 09/14/23 Subjective: left flank pain continues. Feels some pressure near surgical site. Pain worsened with activity right sided pain more tolerable and improving tolerating diet. some pain with ambulation but more tolerable still requiring frequent IV pain meds otherwise feeling better overall afebrile ROS: 10 point ROS as noted above, otherwise negative Physical Exam: GEN: Alert, oriented, NAD HEENT: Normal conjunctiva, sclera anicteric CV: Regular rate and rhythm, no edema Pulm: Nonlabored respirations on room air, clear bilaterally ABD: Soft, left & right flank pain/tenderness, Neuro: Normal speech, normal affect left nephrostomy tube in place with pinkish urine; improving vitals reviewed Problem List: 5 mm left impacted ureterolithiasis with mild hydronephrosis, s/p left nephrostomy tube placement (@[facility]) Recurrent nephrolithiasis Gross hematuria complicated UTI Nausea/vomiting CT abdomen (09/08): 5mm calculus present left ureter with mild hydronephrosis. Punctate calculi present calices of right kidney. No right sided hydro. Urology, Dr. Dawson was consulted last admission. Took patient to the OR with plans to place a left ureteral stent although the stone was impacted and stent was unable to be deployed. Transferred to [facility] for percutaneous left nephrostomy tube placement 09/10. Now back here for continued medical management. Patient reports further imaging after transfer to [facility]. Will request records Blood cx (09/10): NGTD continue empiric levaquin (09/11-) was previously on rocephin PRN analgesics / antiemetics norco increased to 7.5/325 (09/13) will decrease dilaudid frequency later today PRN phenergan for nausea/vomiting VTE: Ambulatory Code: Full Dispo: Home ~1 day Pending better pain control
[2023-09-14] MEDS: HYDROCODONE/APAP 7.5/325 MG TAB PO PRN (13:58)
[2023-09-14] MEDS: PROMETHAZINE 25 MG TABLET PO PRN (21:37)
[2023-09-15] MEDS: HYDROMORPHONE HCL 0.5 MG/0.5 ML INJ IV PRN (02:23)
[2023-09-15 03:26] LABS: Absolute Basophils 0.1 K/uL (0-0.5); Absolute Eosinophils 0.2 K/uL (0-0.5); Absolute Lymphocytes (CBC) 2.5 K/uL (0.7-4.9); Absolute Monocytes 0.8 K/uL (0.1-1.3); Absolute Neutrophil 4.8 K/uL (1.8-8.0); Basophils % 1.5 % (0-1.3); Eosinophils % 2.7 % (0-4.4); Hematocrit 42.5 % (39.6-49.0); Hemoglobin 14.6 g/dL (13.6-17.9); Lymphocytes % 29.2 % (15.3-44.8); MCH 32.8 pg (27.0-35.0); MCHC 34.3 g/dL (32.0-36.0); MCV 95.6 fL (80-100); MPV 7.6 fL (7.6-11.3); Monocytes % 9.3 % (3.3-12.3); Neutrophils % 57.3 % (41.7-73.7); Platelets 423 thou/uL (152-406); RBC Red Blood Cell Count 4.44 M/uL (4.33-5.43); Red Cell Distribution Width 13.6 % (12.1-15.2)
[2023-09-15 03:44] LABS: Anion Gap 6.1 mEq/L (5.0-15.0); Potassium 4.1 mEq/L (3.5-5.1)
--- NOTE | 2023-09-15 12:31 | P.DS ---
Admission Date: 09/12/23 Discharge Date: 09/15/23 Reason for Admission: Left nephrostomy Consultations: Urology - Dr. Dawson Brief History of Present Illness: 33-year-old male who was admitted with left flank pain and was found to have a left ureteral lithiasis and mild hydronephrosis. He was taken to the OR with 4 left ureteral stent placement. Unfortunately, the stone was impacted and the stent was unable to be deployed. For this reason, patient was transferred to [facility] for a left nephrostomy tube. Patient had a left resident replaced at [facility] and has been returned here to [facility]. Hospital Course: Problem List: 5 mm left impacted ureterolithiasis with mild hydronephrosis, s/p left nephrostomy tube placement (@[facility]) Recurrent nephrolithiasis Gross hematuria complicated UTI Nausea/vomiting Physician Discharge instructions: Patient presented with left flank pain after being transferred back into our care following left nephrostomy tube placement at [facility]. Blood cultures were without growth since 09/10. Patient received empiric rocephin and later switched to levaquin while hospitalized and is to complete 10 more days of oral levaquin. Flank pain slowly improved with time and was more manageable on oral norco 7.5/325. Patient was feeling better, flank pain improving and tolerable on oral pain medication, remained afebrile, leukocytosis resolved, and was deemed stable for discharge. Patient is to have close follow up with urology for definitive management in the next 1-2 weeks Medications: Levaquin for 10 more days (end date: 09/25/23) Lamar 7.5/325 25 pills as needed for pain. If needing further pain medication, can discuss with Dr. Dawson at follow up appointment Phenergan as needed for nausea Prescriptions sent to [facility] in [place]. Follow up: PCP 3-5 days Urology in 1 week Please call to schedule / confirm appointments Physical Exam: GEN: Alert, oriented, NAD HEENT: Normal conjunctiva, sclera anicteric CV: Regular rate and rhythm, no edema Pulm: Nonlabored respirations on room air, clear bilaterally ABD: Soft, mild left flank tenderness Neuro: Normal speech, normal affect Vital Signs/Physical Exam: Temp Pulse Resp BP Pulse Ox 97.4 F 72 17 119/63 99 09/15/23 07:24 09/15/23 07:24 09/15/23 08:55 09/15/23 07:24 09/15/23 08:55 Laboratory Data at Discharge: WBC 8.40 thou/uL (4.3-10.9) 09/15/23 03:09 Hgb 14.6 g/dL (13.6-17.9) D 09/15/23 03:09 Hct 42.5 % (39.6-49.0) 09/15/23 03:09 Plt Count 423 thou/uL (152-406) H 09/15/23 03:09 Sodium 136 mEq/L (136-145) 09/15/23 03:09 Potassium 4.1 mEq/L (3.5-5.1) D 09/15/23 03:09 BUN 18 mg/dL (7-18) 09/15/23 03:09 Creatinine 0.83 mg/dL (0.70-1.30) 09/15/23 03:09 Glucose 124 mg/dL (74-106) H 09/15/23 03:09 Phosphorus 3.5 mg/dL (2.5-4.9) 09/12/23 22:50 Magnesium 2.0 mg/dL (1.6-2.4) 09/15/23 03:09 Home Medications: NK [No Home Meds] 09/09/23 Physician Discharge Instructions: Physician Discharge instructions: Patient presented with left flank pain after being transferred back into our care following left nephrostomy tube placement at [facility] for continued medical management. Blood cultures were without growth since 09/10. Patient received empiric rocephin/levaquin while hospitalized and is to complete 1 more week of oral levaquin. Flank pain slowly improved with time and was more manageable on oral norco 7.5/325. Patient was feeling better, flank pain improving and tolerable on oral pain med ication, remained afebrile, leukocytosis resolved, and was deemed stable for discharge. Patient is to have close follow up with urology for further management within 1 week. Medications: Levaquin x1 week Lamar 7.5/325 25 pills as needed for pain. If needing further pain medication, can discuss with Dr. Dawson at follow up appointment Phenergan as needed for nausea Prescriptions sent to [facility] in [place]. Follow up: PCP 3-5 days Urology in 1 week Please call to schedule / confirm appointments Time spent managing pt's care (in minutes): 45
[2023-09-15 13:13] VITALS: BP 140/78; TEMP 97.7
== END 2023-09-15 13:52 | disposition home or self-care (01) | DRG 699 ==
LOC: 2ND 19:24
PROVIDERS: ADMIT Hospitalist; ATTEND Hospitalist
DX: T83.512A Infection and inflammatory reaction due to nephrostomy catheter, initial encounter (principal); N13.6 Pyonephrosis; R31.0 Gross hematuria; Z60.2 Problems related to living alone; Y83.8 Other surgical procedures as the cause of abnormal reaction of the patient, or of later complication, without mention of misadventure at the time of the procedure
CPT/HCPCS: 36415; 80048; 83735; 84100; 85025; J1170; J2405; J2550; J3475; Q0169

== ENCOUNTER 2023-10-21 12:48 | Emergency (ER) | payer OTHER ==
[2023-10-21] MEDS ORDERED: KETOROLAC 30 MG/ML INJ ONE (14:19)
[2023-10-21] MEDS ORDERED: ONDANSETRON 4 MG/2 ML VIAL ONE ×2 (14:19→18:33)
[2023-10-21] MEDS ORDERED: MORPHINE 4 MG/ML SYR ONE (14:19)
[2023-10-21] MEDS ORDERED: NA CHLORIDE 0.9% 1,000 ML ONE (14:19)
[2023-10-21 14:24] LABS: Absolute Basophils 0.1 K/uL (0-0.5); Absolute Eosinophils 0.1 K/uL (0-0.5); Absolute Lymphocytes (CBC) 1.4 K/uL (0.7-4.9); Absolute Monocytes 1.4 K/uL (0.1-1.3); Absolute Neutrophil 18.3 K/uL (1.8-8.0); Basophils % 0.3 % (0-1.3); Eosinophils % 0.3 % (0-4.4); Hematocrit 44.1 % (39.6-49.0); Hemoglobin 14.9 g/dL (13.6-17.9); Lymphocytes % 6.5 % (15.3-44.8); MCH 31.3 pg (27.0-35.0); MCHC 33.7 g/dL (32.0-36.0); MCV 92.9 fL (80-100); Monocytes % 6.5 % (3.3-12.3); Neutrophils % 86.4 % (41.7-73.7); Platelets 447 thou/uL (152-406); RBC Red Blood Cell Count 4.75 M/uL (4.33-5.43); Red Cell Distribution Width 13.9 % (12.1-15.2)
[2023-10-21 14:46] LABS: Albumin/Globulin Ratio 0.9 (1.1-1.8); Anion Gap 9.5 mEq/L (5.0-15.0); Bilirubin Total 1.1 mg/dL (0.2-1.0); Globulin 4.4 g/dL (2.3-3.5); Potassium 3.5 mEq/L (3.5-5.1); Protein, Total 8.4 g/dL (6.4-8.2)
[2023-10-21] MEDS ORDERED: FENTANYL CITR 100 MCG/2 ML ONE (14:54)
--- NOTE | 2023-10-21 15:07 | RAD REPORT ---
EXAM DESCRIPTION: CT - Abdomen Pelvis Wo Contrast - 10/21/2023 1:28 pm CLINICAL HISTORY: Abd pain;Flank pain COMPARISON: Abdomen Pelvis Wo Contrast dated 10/10/2023; Abdomen Pelvis W Contrast dated 09/09/2023; CTSTONE PROTOCOL dated 08/11/2014; CT ABD PELVIS W CONTRAST dated 12/10/2008 TECHNIQUE: Thin cut axial CT imaging of the abdomen and pelvis was performed without IV contrast. Mu ltiplanar reformats were generated and reviewed. All CT scans are performed using dose optimization technique as appropriate and may include automated exposure control or mA/KV adjustment according to patient size. FINDINGS: No suspicious findings in the lung bases. The liver, spleen, adrenal glands, and pancreas show no suspicious findings. Gallbladder and biliary tree are also without suspicious finding. Symmetric renal contour, without suspicious parenchymal findings within limits of noncontrast techniq ue. Numerous nonobstructing right renal calculi largest measuring 4 mm. Left lzfz-oo-yqcpqvax hydrone phrosis is now noted, with proximal hydroureter. Stable left percutaneous nephrostomy tube. 6 mm calc ulus along the left proximal hydroureter is stable in position. No dilated bowel loops or bowel wall thickening. No free air, free fluid or inflammatory stranding. N o hernia, mass or bulky lymphadenopathy. The urinary bladder is without significant finding. No suspicious bony findings. IMPRESSION: New left cysr-lf-ysbuseca hydronephrosis and proximal hydroureter. Stable left proximal ureter 6 mm calculus. Stable positioning of left percutaneous nephrostomy tube. Nonobstructing small right renal calculi not exceeding 4 mm.
[2023-10-21 16:04] LABS: Sqamous Epithelial None Seen /HPF (None Seen); Urine Bacteria 20-50 /HPF (<20); Urine Bilirubin NEGATIVE (Negative); Urine Blood 3+ (OVER) (Negative); Urine Clarity Extremely Turbid (Clear); Urine Color Light-Orange (Yellow); Urine Crystals Unidentified Few /HPF (None Seen); Urine Culture Reflex Order REFLEXED; Urine Glucose NEGATIVE (Negative); Urine Ketones NEGATIVE (Negative); Urine Microscopic Reflex YN ORDER UMIC; Urine Mucus 2+ /HPF (None Seen); Urine Nitrite 1+ (Negative); Urine Protein 2+ (Negative); Urine RBC >50 /HPF (None Seen); Urine Urobilinogen Normal (Normal); Urine WBC >50 /HPF (<5); Urine WBC Clump Occasional /HPF (None Seen)
[2023-10-21] MEDS ORDERED: CEFTRIAXONE 1000 MG/VIAL ONE (16:14)
--- NOTE | 2023-10-21 16:32 | ER ---
Nurse's Notes [facility] Name: Reji Holloway Age: 33 yrs Sex: Male : 1990 Arrival Date: 10/21/2023 Time: 12:48 Bed 6 Private MD: Diagnosis: Calculus of ureter;UTI/ Urinary tract infection, site not specified Presentation: 10/20 13:06 Chief complaint: Patient states: L flank pain, N/V began this morning. States his ll1 nephrostomy tube isn't draining now. Coronavirus screen: Client denies travel out of the [place] in the last 14 days. At this time, the client does not indicate any symptoms associated with coronavirus-19. Ebola Screen: Patient denies travel to an Ebola-affected area in the 21 days before illness onset. Initial Sepsis Screen: Does the patient meet any 2 criteria? No. Patient's initial sepsis screen is negative. Does the patient have a suspected source of infection? No. Patient's initial sepsis screen is negative. Risk Assessment: Do you want to hurt yourself or someone else? Patient reports no desire to harm self or others. Onset of symptoms was October 21, 2023. 13:06 Method Of Arrival: Wheelchair ll1 13:06 Acuity: ADAL 2 ll1 Triage Assessment: 13:06 General: Appears uncomfortable, ill, Behavior is calm, cooperative, appropriate for ll1 age. Pain: Complains of pain in L flank Quality of pain is described as aching. GI: Reports lower abdominal pain, nausea, vomiting. : Reports pain in left flank(s), nephrostomy tube not draining. Historical: - Allergies: 13:06 No Known Drug Allergies; ll1 - PMHx: 13:06 Kidney stone; ll1 - PSHx: 13:06 left nephrostomy (ri); Lithotripsy; ll1 - Immunization history:: Client reports receiving the 2nd dose of the Covid vaccine. - Infectious Disease History:: Denies. - Social history:: Smoking status: Patient denies any tobacco usage or history of. Screenin:12 [facility] ED Fall Risk Assessment (Adult) History of falling in the last 3 months, ld1 including since admission No falls in past 3 months (0 pts). Abuse screen: Denies threats or abuse. Denies injuries from another. Nutritional screening: No deficits noted. Tuberculosis screening: No symptoms or risk factors identified. Assessment: 15:12 General: Appears in no apparent distress. uncomfortable, Behavior is calm, cooperative, ld1 appropriate for age. Pain: Complains of pain in left low back Pain does not radiate. Pain currently is 9 out of 10 on a pain scale. Quality of pain is described as sharp, shooting, stabbing, throbbing, Pain began 1 day ago. Is continuous. Neuro: Level of Consciousness is awake, alert, obeys commands, Oriented to person, place, time, situation. Cardiovascular: Capillary refill < 3 seconds Patient's skin is warm and dry. Rhythm is sinus rhythm. Respiratory: Airway is patent Respiratory effort is even, unlabored. GI: Abdomen is flat, non-distended, Reports nausea, vomiting. : No signs and/or symptoms were reported regarding the genitourinary system. EENT: No signs and/or symptoms were reported regarding the EENT system. Derm: No signs and/or symptoms reported regarding the dermatologic system. Musculoskeletal: No signs and/or symptoms reported regarding the musculoskeletal system. 16:15 Reassessment: No changes from previously documented assessment. Patient and/or family ld1 updated on plan of care and expected duration. Pain level reassessed. 17:58 Reassessment: Patient appears in no apparent distress at this time. No changes from ld1 previously documented assessment. Patient and/or family updated on plan of care and expected duration. Pain level reassessed. Vital Signs: 13:06 BP 108 / 53; Pulse 80; Resp 18; Temp 97.3; Pulse Ox 97% ; Pain 10/10; ll1 14:27 BP 121 / 72; Pulse 71; Resp 18; Pulse Ox 99% on R/A; ld1 15:12 BP 124 / 71; Pulse 78; Resp 18; Pulse Ox 99% on R/A; ld1 17:58 BP 101 / 62; Pulse 71; Resp 18; Pulse Ox 97% on R/A; ld1 18:39 BP 112 / 72; Pulse 61; Resp 16; Temp 98.1; Pulse Ox 100% on R/A; iw 13:06 Pain Scale: Adult ll1 ED Course: 12:50 Patient arrived in ED. mr 12:52 Fabian Roberts MD is Attending Physician. ec2 13:07 Triage completed. ll1 13:07 Arm band placed on. ll1 13:29 CT Abd/Pelvis - Without Contrast In Process Unspecified. EDMS 14:03 Chrissy Hirsch, RN is Primary Nurse. iw 15:12 Patient has correct armband on for positive identification. Placed in gown. Bed in low ld1 position. Call light in reach. Side rails up X2. laboratory monitor on. Pulse ox on. NIBP on. Door closed. Noise minimized. Warm blanket given. 15:12 No provider procedures requiring assistance completed. Inserted saline lock: 20 gauge ld1 in right antecubital area, using aseptic technique. Blood collected. 15:57 Urinalysis w/ reflexes Sent. ld1 17:24 initiated transfer to [facility], pt accepted in transfer to [facility] rm [id number] Marrero,admin approval given by Von Maciel. 18:40 Patient transferred, IV remains in place. iw 18:41 Provided Education on: transfer . iw Administered Medications: 14:31 Drug: NS 0.9% IV 1000 ml IV at 1 bolus Per protocol; 1000 mL bolus Route: IV; Rate: 1 iw bolus; Site: right antecubital; 16:00 Follow up: IV Status: Completed infusion iw 14:31 Drug: TORadol - Ketorolac IVP 15 mg IVP once Route: IVP; Site: right antecubital; iw 15:00 Follow up: Response: No adverse reaction iw 14:31 Drug: Ondansetron IVP 4 mg IVP once; over 2 minutes Route: IVP; Site: right antecubital;iw 15:00 Follow up: Response: No adverse reaction iw 14:31 Drug: morphine IVP or IV 4 mg IVP once over 4 mins Route: IVP; Infused Over: 4 mins; iw Site: right antecubital; 15:00 Follow up: Response: No adverse reaction iw 14:56 Drug: fentaNYL (PF) IVP 100 mcg IVP once Route: IVP; Site: right antecubital; ld1 16:00 Follow up: Response: No adverse reaction iw 16:19 Drug: Rocephin IV 1 grams IV at calculated rate once; Given slow IV push per pharmacy ld1 instructions Route: IV; Rate: calculated rate; Site: right antecubital; 16:35 Follow up: IV Status: Completed infusion iw 16:51 Drug: HYDROmorphone IVP 1 mg IVP once Route: IVP; Site: right antecubital; ld1 17:15 Follow up: Response: No adverse reaction iw 18:39 Drug: HYDROmorphone IVP 1 mg IVP once Route: IVP; Site: right antecubital; iw 19:00 Follow up: Response: No adverse reaction iw 18:39 Drug: Ondansetron IVP 4 mg IVP once; over 2 minutes Route: IVP; Site: right antecubital;iw 19:00 Follow up: Response: No adverse reaction iw Medication: 18:40 VIS not applicable for this client. iw Outcome: 16:32 ER care complete, transfer ordered by . ec2 18:40 Transferred by ground EMS [place] to [facility], Transfer form iw completed. X-rays sent w/ patient. 18:40 Condition: good 18:40 Instructed on the need for admit, Demonstrated understanding of instructions, 18:54 Patient left the ED. ld1 Signatures: Dispatcher [employer] EDMS Marissa Diaz, Gita, Reg Reg mr Chrissy Hirsch, RN SHIREEN iw Andre Wiley RN RN ll1 Ariella Stokes RN RN ld1 Fabian Roberts MD MD ec2 Corrections: (The following items were deleted from the chart) 18:40 15:12 Inserted saline lock: 22 gauge in right antecubital area, using aseptic iw technique. Blood collected. ld1
--- NOTE | 2023-10-21 16:33 | EDPHYS ---
Physician Documentation [facility] Name: Reji Holloway Age: 33 yrs Sex: Male : 1990 Arrival Date: 10/21/2023 Time: 12:48 Bed 6 Private MD: ED Physician Fabian Roberts HPI: 10/20 13:17 This 33 yrs old Male presents to ER via Wheelchair with complaints of ec2 Vomiting, Possible Kidney Stone. 13:17 Patient arrives today for persistent left flank pain. Previous history of nephrostomy ec2 tube, previous ureteral stones. Recently seen 10 days ago, external records reviewed by me, show ureteral stone. Reports pain persistent, also nausea and vomiting.. Historical: - Allergies: 13:06 No Known Drug Allergies; ll1 - PMHx: 13:06 Kidney stone; ll1 - PSHx: 13:06 left nephrostomy (ri); Lithotripsy; ll1 - Immunization history:: Client reports receiving the 2nd dose of the Covid vaccine. - Infectious Disease History:: Denies. - Social history:: Smoking status: Patient denies any tobacco usage or history of. ROS: 13:17 Constitutional: as per hpi ec2 Exam: 13:17 Constitutional: GEN: NAD Head: atraumatic Eyes: EOMI Ears: External ears are ec2 normal. CV: regular rate LUNGS: no respiratory distress ABD: non-distended, flank TTP, nephrostomy tube in place. SKIN: no evidence of rashes MSK: no evidence of trauma NEURO: moves all extremities equally Vital Signs: 13:06 BP 108 / 53; Pulse 80; Resp 18; Temp 97.3; Pulse Ox 97% ; Pain 10/10; ll1 14:27 BP 121 / 72; Pulse 71; Resp 18; Pulse Ox 99% on R/A; ld1 15:12 BP 124 / 71; Pulse 78; Resp 18; Pulse Ox 99% on R/A; ld1 17:58 BP 101 / 62; Pulse 71; Resp 18; Pulse Ox 97% on R/A; ld1 18:39 BP 112 / 72; Pulse 61; Resp 16; Temp 98.1; Pulse Ox 100% on R/A; iw 13:06 Pain Scale: Adult ll1 MDM: 12:57 Patient medically screened. ec2 13:17 Data reviewed: vital signs. ED course: Patient arrives today for evaluation of ec2 persistent flank pain with associated nausea vomiting. Examination remarkable for uncomfortable individual is otherwise hemodynamically appropriate. Will obtain lab work, urine studies, CT imaging and treat the patient's pain. Differential diagnosis include small bowel obstruction, ureteral stone, pyelonephritis.. 15:12 ED course: Patient persists with proximal left ureter stone 6 mm. Nephrostomy tube ec2 uncomplicated. . 16:06 ED course: Patient with infected appearing urine, marked leukocytosis. Will admit for ec2 infected ureteral stone. . 16:31 ED course: Dr. Dawson reports he is not on-call, will transfer the patient for 2 urology.. 17:08 ED course: MDM: Differential diagnosis as documented above in ED course; All lab tests ec2 ordered and reviewed as documented above; Parenteral controlled substances: Yes; External records reviewed: Previous ED visit and associated lab work; Discuss inpatient hospitalization: Yes; I discussed the case with: Hospitalist, urology . 17:19 ED course: I discussed case with urology and the hospitalist at [facility] [address] and they agree to accept the patient for transfer. Patient updated on the plan of care and agreeable. . 10/20 13:16 Order name: CBC with Diff; Complete Time: 17:18 ec2 10/20 13:16 Order name: CMP; Complete Time: 14:53 ec2 10/20 13:16 Order name: Lipase; Complete Time: 14:53 ec2 10/20 13:16 Order name: Urinalysis w/ reflexes; Complete Time: 16:06 ec2 10/20 16:07 Order name: Urine Culture EDHI 10/20 17:17 Order name: CBC Smear Scan; Complete Time: 17:18 EDMS 10/20 13:16 Order name: CT Abd/Pelvis - Without Contrast; Complete Time: 15:11 ec2 10/20 13:16 Order name: IV Saline Lock; Complete Time: 14:27 ec2 10/20 13:16 Order name: Labs collected and sent; Complete Time: 14:27 ec2 Administered Medications: 14:31 Drug: NS 0.9% IV 1000 ml IV at 1 bolus Per protocol; 1000 mL bolus Route: IV; Rate: 1 iw bolus; Site: right antecubital; 16:00 Follow up: IV Status: Completed infusion iw 14:31 Drug: TORadol - Ketorolac IVP 15 mg IVP once Route: IVP; Site: right antecubital; iw 15:00 Follow up: Response: No adverse reaction iw 14:31 Drug: Ondansetron IVP 4 mg IVP once; over 2 minutes Route: IVP; Site: right antecubital;iw 15:00 Follow up: Response: No adverse reaction iw 14:31 Drug: morphine IVP or IV 4 mg IVP once over 4 mins Route: IVP; Infused Over: 4 mins; iw Site: right antecubital; 15:00 Follow up: Response: No adverse reaction iw 14:56 Drug: fentaNYL (PF) IVP 100 mcg IVP once Route: IVP; Site: right antecubital; ld1 16:00 Follow up: Response: No adverse reaction iw 16:19 Drug: Rocephin IV 1 grams IV at calculated rate once; Given slow IV push per pharmacy ld1 instructions Route: IV; Rate: calculated rate; Site: right antecubital; 16:35 Follow up: IV Status: Completed infusion iw 16:51 Drug: HYDROmorphone IVP 1 mg IVP once Route: IVP; Site: right antecubital; ld1 17:15 Follow up: Response: No adverse reaction iw 18:39 Drug: HYDROmorphone IVP 1 mg IVP once Route: IVP; Site: right antecubital; iw 19:00 Follow up: Response: No adverse reaction iw 18:39 Drug: Ondansetron IVP 4 mg IVP once; over 2 minutes Route: IVP; Site: right antecubital;iw 19:00 Follow up: Response: No adverse reaction iw Disposition Summary: 10/21/23 16:32 Transfer Ordered Notes: Transfer Location: [facility] ec2 Reason: Higher level of care ec2 Condition: Stable ec2 Problem: new ec2 Symptoms: have improved ec2 Accepting Physician: transferring yuri(10/21/23 18:54) ld1 Diagnosis - Calculus of ureter ec2 - UTI/ Urinary tract infection, site not specified ec2 Discharge Instructions: - Discharge Summary Sheet ec2 Forms: - Medication Reconciliation Form ec2 - SBAR form ec2 Signatures: Dispatcher [employer] Chrissy Tavares, RN RN iw Andre Wiley RN RN ll1 Ariella Stokes RN RN ld1 Fabian Roberts MD MD ec2 Corrections: (The following items were deleted from the chart) 13:17 13:17 CBC+H.LAB.BRZ ordered. EDMS EDMS 13:17 13:17 COMPREHENSIVE METABOLIC PANEL+C.LAB.BRZ ordered. EDMS EDMS 13:17 13:17 LIPASE+C.LAB.BRZ ordered. EDMS EDMS 13:17 13:17 Urinalysis+U.LAB.BRZ ordered. EDMS EDMS 13:17 13:17 Abdomen Pelvis Wo Con+CT.RAD.BRZ ordered. EDMS EDMS 15:57 15:13 Priest ordered. ec2 ld1 18:54 16:32 transferring doc ec2 ld1
[2023-10-21] MEDS ORDERED: HYDROMORPHONE HCL 1 MG/ML INJ ONE ×2 (16:41→18:33)
[2023-10-21 17:15] LABS: White Blood Cell Scan OK (OK)
[2023-10-21 17:16] LABS: Blood Morphology Comment NOT SEEN (NOT SEEN); Platelet Estimate INCR
[2023-10-21 19:53] VITALS: BP 112/72; TEMP 98.1; O2SAT 100
== END 2023-10-21 18:54 | disposition short-term general hospital (02) ==
LOC: ER 12:48
DX: N20.1 Calculus of ureter (principal); N39.0 Urinary tract infection, site not specified; Z87.442 Personal history of urinary calculi
CPT/HCPCS: 87088; 85025; 81001; 87086; 36415; 83690; 80053; 74176; J3010; J1170 ×2; J2405 ×2; J7030; J0696; 96361; 96365; 96375; 99285

== ENCOUNTER 2024-06-05 21:16 | Emergency (ER) | payer OTHER ==
[2024-06-05] MEDS ORDERED: ONDANSETRON 4 MG/2 ML VIAL ONE (23:28)
[2024-06-05] MEDS ORDERED: MORPHINE 4 MG/ML SYR ONE (23:29)
[2024-06-05] MEDS ORDERED: NA CHLORIDE 0.9% 1,000 ML ONE (23:29)
[2024-06-05 23:55] LABS: Absolute Basophils 0.1 K/uL (0-0.5); Absolute Lymphocytes (CBC) 1.3 K/uL (0.7-4.9); Absolute Monocytes 1.1 K/uL (0.1-1.3); Absolute Neutrophil 5.8 K/uL (1.8-8.0); Basophils % 0.6 % (0-1.3); Hematocrit 45.2 % (39.6-49.0); Hemoglobin 16.2 g/dL (13.6-17.9); Lymphocytes % 15.6 % (15.3-44.8); MCH 32.7 pg (27.0-35.0); MCHC 35.8 g/dL (32.0-36.0); MCV 91.6 fL (80-100); MPV 8.4 fL (7.6-11.3); Monocytes % 13.8 % (3.3-12.3); Platelets 245 thou/uL (152-406); RBC Red Blood Cell Count 4.94 M/uL (4.33-5.43); Red Cell Distribution Width 14.1 % (12.1-15.2)
[2024-06-06 00:10] LABS: Sqamous Epithelial None Seen /HPF (None Seen); Urine Bacteria None Seen /HPF (<20); Urine Bilirubin NEGATIVE (Negative); Urine Blood Negative (Negative); Urine Clarity Turbid (Clear); Urine Color Yellow (Yellow); Urine Crystals Unidentified Few /HPF (None Seen); Urine Culture Reflex Order NOT NEEDED; Urine Glucose NEGATIVE (Negative); Urine Ketones NEGATIVE (Negative); Urine Microscopic Reflex YN ORDER UMIC; Urine Mucus Slight /HPF (None Seen); Urine Nitrite NEGATIVE (Negative); Urine Protein TRACE (Negative); Urine Urobilinogen 2+ (Normal); Urine WBC <5 /HPF (<5)
[2024-06-06] MEDS ORDERED: HYDROMORPHONE HCL 1 MG/ML INJ ONE (00:13)
[2024-06-06 00:14] LABS: Albumin/Globulin Ratio 0.9 (1.1-1.8); Anion Gap 15.5 mEq/L (5.0-15.0); Bilirubin Total 0.9 mg/dL (0.2-1.0); Globulin 4.3 g/dL (2.3-3.5); Potassium 3.5 mEq/L (3.5-5.1); Protein, Total 8.3 g/dL (6.4-8.2)
[2024-06-06] MEDS ORDERED: KETOROLAC 30 MG/ML INJ ONE (01:33)
--- NOTE | 2024-06-06 03:13 | RAD REPORT ---
EXAM DESCRIPTION: Abdomen Pelvis W Contrast RadLex: CT ABDOMEN PELVIS WITH IV CONTRAST CLINICAL HISTORY: 34 years Male; Abd pain;Flank pain; IV ONLY Bed Name: [facility] TECHNIQUE: CT of the abdomen and pelvis [with] intravenous contrast. All CT scans at this facility use dose modulation, iterative reconstruction, and/or weight based dosi ng when appropriate to reduce radiation dose to as low as reasonably achievable. COMPARISON: CT abdomen pelvis 03/16/2024 FINDINGS: Lower thorax: Lung bases are clear Abdomen: Stomach: Within normal limits Liver: No focal lesions. No intrahepatic ductal distention. Gallbladder: Nondistended Pancreas: Within normal limits Spleen: Within normal limits Right kidney: No hydronephrosis. Multiple renal stones. Left kidney: No hydronephrosis. 2 mm renal stone. Adrenal glands: Within normal limits Vascular structures: Within normal limits Nodes: No lymphadenopathy by size criteria Pelvis: Small bowel: No significant distention. Appendix: Not visualized. Colon: No distention or acute pericolonic edema. Peritoneum: No free intraperitoneal fluid or air. Bones: No acute bone findings. Bladder: Unremarkable. Reproductive organs: No acute findings. IMPRESSION: 1. No acute abdominopelvic findings. 2. Bilateral nephrolithiasis. No hydronephrosis. Electronically signed by: Amira Beauchamp MD 06/06/2024 03:10 AM [facility] Z9 Due to temporary technical issues with the PACS/[employer] reporting system, reports are being andrew d by the in-house radiologist without review as a courtesy to ensure prompt reporting the interpreting radiologist is fully responsible for the content of the report. Transcribed Date/Time: 06/06/2024 3:13 AM
--- NOTE | 2024-06-06 03:29 | EDPHYS ---
Physician Documentation [facility] Name: Reji Holloway Age: 34 yrs Sex: Male : 1990 Arrival Date: 06/05/2024 Time: 21:16 Bed 5 Private MD: ED Physician Turner Pro HPI: 06/06 01:39 This 34 yrs old Male presents to ER via Ambulatory with complaints of Headache, sb4 Nausea/Vomiting, Fever. 01:39 Patient reports bilateral flank pain associated with nausea, and vomiting for 2 days. 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 States that he has required a nephrostomy tube in the past, in the left kidney, which was removed a few months ago. States he follows with urology at [facility]. Denies any difficulty urinating or hematuria. Historical: - Allergies: 06/05 22:13 No Known Allergies; al5 - PMHx: 22:13 Kidney stone; al5 - PSHx: 22:13 left nephrostomy; Lithotripsy; al5 - Immunization history:: Adult Immunizations up to date. - Infectious Disease History:: Denies. - Social history:: Smoking status: Patient reports the use of cigarette tobacco products, smokes one pack cigarettes per day. ROS: 06/06 01:39 Constitutional: Negative for fever, chills, and weight loss, sb4 Constitutional: Positive for body aches, chills, fever, Back: Positive for flank pain, bilaterally, All other systems are negative, Exam: 01:39 Head/Face: Normocephalic, atraumatic. Eyes: Extra-ocular motions intact. Periorbital sb4 areas with no swelling, redness, or edema. ENT: Mucous membranes moist. Cardiovascular: Regular rate and rhythm with a normal S1 and S2. Respiratory: No increased work of breathing, no retractions or nasal flaring. Abdomen/GI: Soft, non-tender, no distension. Skin: Warm, dry with normal turgor. Normal color with no rashes, no lesions, and no evidence of cellulitis. 01:39 Constitutional: The patient appears alert, awake, in obvious pain, 01:39 Back: CVA tenderness, is noted bilaterally, Vital Signs: 06/05 22:11 BP 129 / 90; Pulse 82; Resp 18; Temp 98.6; Pulse Ox 100% on R/A; Weight 72.57 kg; al5 Height 6 ft. 1 in. ; Pain 10/10; 23:44 BP 132 / 76; Pulse 74; Resp 18; Temp 98.6; Pulse Ox 100% ; Pain 9/10; bm8 06/06 01:35 BP 118 / 76; Pulse 73; Resp 17; Temp 98.6; Pulse Ox 96% ; Pain 10/10; bm8 02:37 BP 114 / 78; Pulse 62; Resp 17; Temp 98.6; Pulse Ox 96% ; Pain 10/10; bm8 03:40 BP 112 / 84; Pulse 68; Resp 14; Pulse Ox 98% ; vc1 06/05 22:11 Body Mass Index 21.11 (72.57 kg, 185.42 cm) al5 06/05 22:11 Pain Scale: Adult al5 23:44 Pain Scale: Adult bm8 06/06 01:35 Pain Scale: Adult bm8 02:37 Pain Scale: Adult bm8 [place] Coma Score: 06/05 23:44 Eye Response: spontaneous(4). Motor Response: obeys commands(6). Verbal Response: bm8 oriented(5). Total: 15. 06/06 02:37 Eye Response: spontaneous(4). Motor Response: obeys commands(6). Verbal Response: bm8 oriented(5). Total: 15. MDM: 06/05 22:18 Medical Screening Exam initiated sb4 06/06 02:49 Data reviewed: vital signs, nurses notes, lab test result(s), radiologic studies. sb4 Counseling: I had a detailed discussion with the patient and/or guardian regarding the historical points, exam findings, and any diagnostic results supporting the discharge/admit diagnosis, lab results, radiology results. Awaiting: CT scan results. 03:24 Differential diagnosis: Renal stone UTI. Data reviewed: radiologic studies, CT scan, bo1 See report. ED course: Pt is better, already has urologist to see and being worked up. 06/05 22:26 Order name: CBC with Diff; Complete Time: 00:12 sb4 06/05 22:26 Order name: CMP; Complete Time: 00:15 sb4 06/05 22:26 Order name: Lipase; Complete Time: 00:15 sb4 06/05 22:26 Order name: Urinalysis w/ reflexes; Complete Time: 00:10 sb4 06/05 22:26 Order name: CT Abd/Pelvis - IV Contrast Only; Complete Time: 03:17 sb4 06/05 22:26 Order name: IV Saline Lock; Complete Time: 23:43 sb4 06/05 22:26 Order name: Labs collected and sent; Complete Time: 23:43 sb4 Administered Medications: 06/05 23:43 Drug: Ondansetron IVP 4 mg IVP once; over 2 minutes Route: IVP; Site: right forearm; bm8 06/06 00:25 Follow up: Response: No adverse reaction 8 06/05 23:43 Drug: morphine IVP or IV 4 mg IVP once over 4 mins Route: IVP; Infused Over: 4 mins; bm8 Site: right forearm; 06/06 00:24 Follow up: Response: No adverse reaction 8 06/05 23:43 Drug: NS 0.9% IV 1000 ml IV at 1 bolus Per protocol; to be given as a bolus over 60 bm8 minutes Route: IV; Rate: 1 bolus; Site: right forearm; 06/06 00:25 Follow up: Response: No adverse reaction; IV Status: Completed infusion; IV Intake: bm8 1000ml 00:24 Drug: HYDROmorphone IVP 1 mg IVP once Route: IVP; Site: right forearm; bm8 01:34 Follow up: Response: No adverse reaction bm8 01:35 Drug: Ketorolac IVP 30 mg IVP once Route: IVP; Site: right forearm; bm8 02:38 Follow up: Response: No adverse reaction bm8 Disposition: 03:31 I reviewed the patient's care provided by Advanced Practice Provider \T\ agree w/ the bo1 diagnosis \T\ care plan. I personally saw the pt \T\ performed a substantive portion of the visit, incldng all aspects of the (History/Exam/Medical Decision Making). Reviewed the CT report and discussed plan of care with the pt. Disposition Summary: 06/06/24 03:29 Discharge Ordered Notes: Location: Home bo1 Problem: chronic bo1 Symptoms: have improved bo1 Condition: Stable bo1 Diagnosis - Unspecified renal colic bo1 Followup: bo1 - With: Private Physician - When: Upon discharge from the Emergency Department - Reason: Recheck today's complaints, Continuance of care Discharge Instructions: - Discharge Summary Sheet bo1 - Renal Colic, Qxeu-uw-Owrs bo1 - Kidney Stones, Plot-om-Babl bo1 Forms: - Medication Reconciliation Form bo1 - Antibiotic Education bo1 - Prescription Opioid Use bo1 - Patient Portal Instructions bo1 - Leadership Thank You Letter bo1 Prescriptions: - Flomax 0.4 mg Oral capsule - take 1 capsule ORAL route daily; 7 capsule; Refills: 0, Product Selection bo1 Permitted - ketorolac 10 mg Oral tablet - take 1 tablet ORAL route 4 times per day for 5 days; 20 tablet; Refills: 0, bo1 Product Selection Permitted - Cipro 500 mg Oral Tablet - take 1 tablet ORAL route every 12 hours for 7 days; 14 tablet; Refills: 0, bo1 Product Selection Permitted Signatures: Dispatcher [employer] EDMS Luz Elena Pinto PA-C PA-C sb4 Turner Pro MD MD bo1 Travis Boo, RN RN bm8 Priscila Wilson RN RN al5 Corrections: (The following items were deleted from the chart) 06/05 22:26 22:26 CBC+H.LAB.BRZ ordered. EDMS EDMS 22:26 22:26 COMPREHENSIVE METABOLIC PANEL+C.LAB.BRZ ordered. EDMS EDMS 22:26 22:26 LIPASE+C.LAB.BRZ ordered. EDMS EDMS 22:26 22:26 Urinalysis+U.LAB.BRZ ordered. EDMS EDMS
--- NOTE | 2024-06-06 03:29 | ER ---
Nurse's Notes [facility] Name: Reji Holloway Age: 34 yrs Sex: Male : 1990 Arrival Date: 06/05/2024 Time: 21:16 Bed 5 Private MD: Diagnosis: Unspecified renal colic Presentation: 06/05 22:11 Chief complaint: Patient states: c/o dizziness, nausea, vomiting, cough, and kidneys al5 feeling like they are on the fire x2 days. has nephrostomy on L side. Coronavirus screen: At this time, the client does not indicate any symptoms associated with coronavirus-19. Ebola Screen: No symptoms or risks identified at this time. Initial Sepsis Screen: Does the patient meet any 2 criteria? No. Patient's initial sepsis screen is negative. Does the patient have a suspected source of infection? No. Patient's initial sepsis screen is negative. Risk Assessment: Do you want to hurt yourself or someone else? Patient reports no desire to harm self or others. Onset of symptoms was June 03, 2024. 22:11 Method Of Arrival: Ambulatory al5 22:11 Acuity: ADAL 3 al5 Triage Assessment: 22:13 Headache History: Denies prior headaches. General: Appears in no apparent distress. al5 uncomfortable, ill, Behavior is calm, cooperative. Pain: Complains of pain in left low back, left mid back, right mid back and right low back Pain currently is 10 out of 10 on a pain scale. Pain began 2-3 days ago. Also complains of nausea. EENT: No signs and/or symptoms were reported regarding the EENT system. Neuro: Level of Consciousness is awake, alert, obeys commands, Oriented to person, place, time, situation, Reports dizziness. Cardiovascular: Capillary refill < 3 seconds Patient's skin is warm and dry. Respiratory: Airway is patent Respiratory effort is even, unlabored, Respiratory pattern is regular, symmetrical. GI: Reports nausea, vomiting. : Reports pain in bilateral flank(s). Derm: Skin is intact, is healthy with good turgor, Skin is pink, warm \T\ dry. normal. Musculoskeletal: No signs and/or symptoms reported regarding the musculoskeletal system. Historical: - Allergies: 22:13 No Known Allergies; al5 - PMHx: 22:13 Kidney stone; al5 - PSHx: 22:13 left nephrostomy; Lithotripsy; al5 - Immunization history:: Adult Immunizations up to date. - Infectious Disease History:: Denies. - Social history:: Smoking status: Patient reports the use of cigarette tobacco products, smokes one pack cigarettes per day. Screenin:13 [facility] ED Fall Risk Assessment (Adult) History of falling in the last 3 months, al5 including since admission No falls in past 3 months (0 pts) Confusion or Disorientation No (0 pts) Intoxicated or Sedated No (0 pts) Impaired Gait No (0 pts) Mobility Assist Device Used No (0 pt) Altered Elimination No (0 pt) Score/Fall Risk Level 0 - 2 = Low Risk Oriented to surroundings, Maintained a safe environment, Hourly rounding (assess needs \T\ fall precautionary measures) done. Abuse screen: Denies threats or abuse. Denies injuries from another. Nutritional screening: No deficits noted. Tuberculosis screening: No symptoms or risk factors identified. Assessment: 22:13 Reassessment: see triage assessment. al5 23:44 General: Appears distressed, uncomfortable, Behavior is calm, cooperative, appropriate bm8 for age. Pain: Complains of pain in right low back and right mid back and left mid back and left low back Pain currently is 9 out of 10 on a pain scale. Quality of pain is described as aching, crampy. Neuro: No deficits noted. Level of Consciousness is awake, alert, obeys commands, Oriented to person, place, time, situation, Appropriate for age. Cardiovascular: Denies chest pain, Capillary refill < 3 seconds in bilateral fingers Patient's skin is warm and dry. Respiratory: Airway is patent Trachea midline Respiratory effort is even, unlabored, Respiratory pattern is regular, symmetrical, Breath sounds are clear bilaterally. GI: No signs and/or symptoms were reported involving the gastrointestinal system. : Urine is blood tinged, Reports pain in bilateral flank(s). EENT: No signs and/or symptoms were reported regarding the EENT system. Derm: No signs and/or symptoms reported regarding the dermatologic system. Musculoskeletal: No signs and/or symptoms reported regarding the musculoskeletal system. 06/06 01:35 Reassessment: Patient appears in no apparent distress at this time. Patient and/or bm8 family updated on plan of care and expected duration. Pain level reassessed. Patient is alert, oriented x 3, equal unlabored respirations, skin warm/dry/pink. Patient states symptoms have not improved. pt states that he is still in the same amount of pain as he was when he got here while in a relaxed side position watching a movie on his phone.. 02:37 Reassessment: Patient appears in no apparent distress at this time. No changes from bm8 previously documented assessment. Patient and/or family updated on plan of care and expected duration. Pain level reassessed. Patient is alert, oriented x 3, equal unlabored respirations, skin warm/dry/pink. Patient states symptoms have not improved. 03:40 Reassessment: Patient appears in no apparent distress at this time. No changes from vc1 previously documented assessment. Patient and/or family updated on plan of care and expected duration. Pain level reassessed. Patient is alert, oriented x 3, equal unlabored respirations, skin warm/dry/pink. Vital Signs: 06/05 22:11 BP 129 / 90; Pulse 82; Resp 18; Temp 98.6; Pulse Ox 100% on R/A; Weight 72.57 kg; al5 Height 6 ft. 1 in. ; Pain 10/10; 23:44 BP 132 / 76; Pulse 74; Resp 18; Temp 98.6; Pulse Ox 100% ; Pain 9/10; bm8 06/06 01:35 BP 118 / 76; Pulse 73; Resp 17; Temp 98.6; Pulse Ox 96% ; Pain 10/10; bm8 02:37 BP 114 / 78; Pulse 62; Resp 17; Temp 98.6; Pulse Ox 96% ; Pain 10/10; bm8 03:40 BP 112 / 84; Pulse 68; Resp 14; Pulse Ox 98% ; vc1 06/05 22:11 Body Mass Index 21.11 (72.57 kg, 185.42 cm) al5 06/05 22:11 Pain Scale: Adult al5 23:44 Pain Scale: Adult bm8 06/06 01:35 Pain Scale: Adult bm8 02:37 Pain Scale: Adult bm8 [place] Score: 06/05 23:44 Eye Response: spontaneous(4). Motor Response: obeys commands(6). Verbal Response: bm8 oriented(5). Total: 15. 06/06 02:37 Eye Response: spontaneous(4). Motor Response: obeys commands(6). Verbal Response: bm8 oriented(5). Total: 15. ED Course: 06/05 21:26 Patient arrived in ED. am2 21:39 Luz Elena Pinto PA-C is PHCP. sb4 21:39 Turner Pro MD is Attending Physician. sb4 22:12 Triage completed. al5 22:14 Arm band placed on right wrist. Patient placed in waiting room, in view of staff al5 members, on pulse oximetry, Patient notified of wait time. 22:14 Patient has correct armband on for positive identification. Provided Education on: plan al5 of care. 22:14 No provider procedures requiring assistance completed. al5 23:24 Travis Boo, RN is Primary Nurse. bm8 23:44 Inserted saline lock: 18 gauge in right forearm, using aseptic technique. Blood bm8 collected. Flushed with 10 mL NS. Patient maintains SpO2 saturation greater than 95% on room air. 06/06 00:52 CT Abd/Pelvis - IV Contrast Only In Process Unspecified. EDMS 03:39 IV discontinued, intact, bleeding controlled, No redness/swelling at site. Pressure vc1 dressing applied. Administered Medications: 06/05 23:43 Drug: Ondansetron IVP 4 mg IVP once; over 2 minutes Route: IVP; Site: right forearm; bm8 06/06 00:25 Follow up: Response: No adverse reaction 8 06/05 23:43 Drug: morphine IVP or IV 4 mg IVP once over 4 mins Route: IVP; Infused Over: 4 mins; bm8 Site: right forearm; 06/06 00:24 Follow up: Response: No adverse reaction bm8 06/05 23:43 Drug: NS 0.9% IV 1000 ml IV at 1 bolus Per protocol; to be given as a bolus over 60 bm8 minutes Route: IV; Rate: 1 bolus; Site: right forearm; 06/06 00:25 Follow up: Response: No adverse reaction; IV Status: Completed infusion; IV Intake: bm8 1000ml 00:24 Drug: HYDROmorphone IVP 1 mg IVP once Route: IVP; Site: right forearm; bm8 01:34 Follow up: Response: No adverse reaction bm8 01:35 Drug: Ketorolac IVP 30 mg IVP once Route: IVP; Site: right forearm; bm8 02:38 Follow up: Response: No adverse reaction bm8 Medication: 06/05 22:13 VIS not applicable for this client. al5 Intake: 06/06 00:25 IV: 1000ml; Total: 1000ml. bm8 Outcome: 03:29 Discharge ordered by . bo1 03:39 Discharged to home ambulatory, vc1 03:39 Condition: stable 03:39 Discharge instructions given to patient, Instructed on discharge instructions, follow up and referral plans. medication usage, Demonstrated understanding of instructions, follow-up care, medications, Prescriptions given X 3, 03:42 Patient left the ED. vc1 Signatures: Dispatcher [employer] EDMS Priscila Hampton am2 Georgina Angela RN RN vc1 Luz Elena Pinto, PA-C PA-C sb4 Turner Pro MD MD bo1 Travis Boo, RN RN bm8 Priscila Wilson RN RN al5 Corrections: (The following items were deleted from the chart) 06/05 22:15 22:14 Arm band placed on right wrist. Patient placed in waiting room, in view of staff al5 members, on pulse oximetry, Patient notified of wait time al5
[2024-06-06 04:08] VITALS: TEMP 98.6
[2024-06-06 04:22] VITALS: BP 112/84; O2SAT 98
== END 2024-06-06 03:42 | disposition home or self-care (01) ==
LOC: ER 21:16
DX: N23 Unspecified renal colic (principal); Z87.442 Personal history of urinary calculi; F17.210 Nicotine dependence, cigarettes, uncomplicated
CPT/HCPCS: 96361; 85025; 81001; 36415; 83690; 80053; 74177; 96375; 96374; 99284; Q9967; J1171; J2405; J7030

== ENCOUNTER 2025-02-19 14:07 | Emergency (ER) | payer SELFPAY ==
--- OUTSIDE RECORDS SUMMARY | 2025-02-19 14:13 | XMS REPORT | Continuity of Care Document ---
Author Name Unknown Address [address] [facility] [address] [place] [address] [facility] Address [address] [facility] [place]. [address] [place] [address] Care Team Providers Care Bisque Placer Name Role Phone Matheus Ryder Primary Care Physician [phone] KATARINA GUERRA Attending Clinician UnaCHINO Ritter Attending Clinician Unavailable EMILY FULTON Attending Clinician Norman [facility] Sarah Zhang MD Attending Clinician [phone] SARAH CURRIE Attending Clinician Unavailable ISHMAEL MONTERROSO Attending Clinician UnavailBERTIN Lynch Attending Clinician UnavailJIMENEZ Bello Attending Clinician Unavailable SAMIR BEST Attending Clinician Unavailab Calvo Attending Clinician Unavailable KATARINA GUERRA Admitting Clinician KAROL Leal Admitting Clinician MERCEDES Ruiz Admitting Clinician Unavailable JIMENEZ VILLASEÑOR Admitting Clinician Unavailable AMRIK Admitting Clinician Unavailable Payers Payer Name Policy Type Policy Number Effective Date Expirati on Date Source [facility] EXCHANGE [id number] 2023 00:00:00 Problems Condition Name Condition Details Condition Category Status Onset Date Resolution Date Last Treatment Date Treating Clinician Comments Source Sepsis Sepsis Disease [facility] 11-02 00:00: 00 [facility] Pyelonephr itis Pyelonephr itis Disease Active 6-30 00:00: 00 [facility] Nephrostom y complicati on Nephrostom y complicati on Disease Recurre nce 6-17 00:00: 00 [facility] Recurrent nephrolith iasis Recurrent nephrolith iasis Disease Active 5-20 00:00: 00 [facility] Nephrolith iasis Nephrolith iasis Disease Active 08 00:00: 00 [facility] Allergies, Adverse Reactions, Alerts Allergy Name Allergy Type Status Severity Reaction(s) Onset Date Inactive Date Treating Clinician Comments Source NO KNOWN ALLERGIE S Allergy Active [facility] NO KNOWN ALLERGIE S Drug Class Active [facility] Social History Social Habit Start Date Stop Date Quantity Comments Source History of tobacco use 2008-09-10 00:00:00 Smokes tobacco daily [facility] Sexual orientation C [facility] Sex 2025-01-14 15:33:33 2025-01-14 15:33:33 Male (finding) [facility] Alcoholic beverage intake 2024-01-14 00:00:00 2024-01-14 00:00:00 Lifetime non-drinker (finding) [facility] History of Social function 2023-10-21 00:00:00 2023-10-21 00:00:00 [facility] Cigarettes smoked current (pack per day) - Reported 2023-09-11 00:00:00 2023-09-11 00:00:00 [facility] Cigarette pack-years 2023-09-11 00:00:00 2023-09-11 00:00:00 [facility] Tobacco use and exposure 2023-09-11 00:00:00 2023-09-11 00:00:00 Smokeless tobacco non-user [facility] Sex assigned at 1990 00:00:00 1990 00:00:00 [facility] Smoking Status Start Date Stop Date Source Tobacco smoking consumption unknown [facility] Smokes tobacco daily 2023-09-11 00:00:00 [facility] Medications Ordered Medication Name Filled Medication Name Start Date Stop Date Current Medication? Ordering Clinician Indication Dosage Frequency Signature (SIG) Comments Components Source oxyCODONE 15 mg TR12 11-18 08:59: 33 Yes 1{tbl} Take 1 tablet by mouth as needed. [facility] oxyCODONE (ROXICODONE ) 15 MG immediate release tablet 11-05 00:00: 00 Yes 15mg Take 1 tablet (15 mg total) by mouth every 4 (four) hours as needed for pain Look-ali ke/Sound-a like medication . Max Daily Amount: 90 mg [facility] ondansetron (ZOFRAN) 4 MG tablet 11-05 00:00: 00 Yes 4mg Take 1 tablet (4 mg total) by mouth 3 (three) times daily as needed for nausea. [facility] zolpidem 5 mg tablet 11-05 00:00: 00 12-07 04:59 :00 No 5mg Take 1 tablet by mouth at bedtime. [facility] tamsulosin 0.4 mg 24 hr capsule 09-22 00:00: 00 Yes .8mg Take 2 capsules by mouth in the morning. [facility] Vital Signs Vital Name Observation Time Observation Value Comments S ourradha HEIGHT 2024-01-14 07:00:00 180.3 cm WEIGHT 2024-01-14 07:00:00 67.132 kg HEIGHT 2024-01-13 10:40:00 188 cm WEIGHT 2024-01-13 10:40:00 72.576 kg Systolic blood pressure 2023-11-19 14:11:00 130 mm[Hg] [facility] Diastolic blood pressure 2023-11-19 14:11:00 90 mm[Hg] [facility] Heart rate 2023-11-19 14:11:00 89 /min [facility] Body height 2023-11-19 14:11:00 182.9 cm [facility] Body weight 2023-11-19 14:11:00 63.413 kg [facility] BMI 2023-11-19 14:11:00 18.96 kg/m2 [facility] Oxygen saturation in Arterial blood by Pulse oximetry 2023-11-19 14:11:00 95 /min [facility] HEIGHT 2023-11-03 01:00:00 180.3 cm WEIGHT 2023-11-03 01:00:00 65 kg HEIGHT 2023-10-22 20:10:57 180.3 cm WEIGHT 2023-10-22 20:10:57 68.04 kg HEIGHT 2023-10-22 20:10:57 180.3 cm WEIGHT 2023-10-22 20:10:57 68.04 kg Systolic blood pressure 2023-11-19 14:11:00 130 mm[Hg] [facility] Diastolic blood pressure 2023-11-19 14:11:00 90 mm[Hg] [facility] Heart rate 2023-11-19 14:11:00 89 /min [facility] Body height 2023-11-19 14:11:00 182.9 cm [facility] Body weight 2023-11-19 14:11:00 63.413 kg [facility] BMI 2023-11-19 14:11:00 18.96 kg/m2 [facility] Oxygen saturation in Arterial blood by Pulse oximetry 2023-11-19 14:11:00 95 /min [facility] Procedures Procedure Date / Time Performed Performing Clinicia n Source ROBBIE,POST-VOID RES,US,NON-IMAGING 2023-11-19 00:00:00 Sarah Currie [facility] Encounters Start Date/Time End Date/Time Encounter Type Admission Type Attending Clinicians Care Facility Care Department Encounter ID Source 2023-09-12 01:50:48 Inpatient KATARINA CLEMONS [facility] [id number] [facility] 2023-09-11 17:17:36 Inpatient KATARINA CLEMONS [facility] [id number] [facility] 2023-09-11 15:17:50 Inpatient CHINO HERNANDEZ [facility] [id number] [facility] 2024-01-14 07:40:05 2024-01-14 23:59:00 Outpatient EMILY RODRIGUEZ [facility] [id number] [facility] 2024-01-14 06:06:00 2024-01-14 11:33:00 Outpatient EMILY RODRIGUEZ [facility] Surgery [id number] [facility] 2024-01-14 00:00:00 2024-01-14 00:00:00 Outpatient EMILY RODRIGUEZ [facility] [id number] [facility] 2024-01-13 00:00:00 2024-01-13 00:00:00 Outpatient EMILY RODRIGUEZ [facility] [id number] [facility] 2023-11-20 00:00:00 2023-11-20 14:26:14 Patient Outreach Rachele Staples [facility] [id number] [facility] 2023-11-19 08:00:00 2023-11-19 08:30:00 Office Visit Sarah Currie [facility] [id number] [facility] 2023-11-19 08:00:00 2023-11-19 08:00:00 [facility] [id number] 2023-10-22 14:11:44 2023-10-22 14:11:44 Outpatient JIMENEZ NORWOOD [facility] [id number] [facility] 2023-09-28 13:27:00 2023-09-28 16:29:00 Emergency ER SAMIR BEST [facility] Emergency [id number] [facility] 2023-09-28 14:32:48 2023-09-28 14:32:48 Outpatient SAMIR HERNANDEZ [facility] [id number] [facility] 2023-09-11 12:52:00 2023-09-12 18:40:00 Inpatient UR KATARINA GUERRA [facility] Urology [id number] [facility] Results Test Description Test Time Test Comments Results Resul t Comments Source IR NEPHROSTOMY TUBE CHANGE - LEFT 2024-01-05 0 13:31:26 [facility] [place] [facility] 1990 Sex: M PROCEDURE: Nephrostogram and catheter removalProcedural PersonnelAttending physician(s): Sofie Brown physician(s): James Palumbo physician(s): NoneAdvanced practice provider(s): NonePre-procedure diagnosis: NephrolithiasisPost-proced ure diagnosis: SameIndication: Ureteral obstructionAdditional clinical history: History of obstructing ureteral stone.Patient presented with PCN capped for three weeks.Complications: No immediate complications.IMPRESSION:A ntegrade nephrostogram demonstrates patent ureter draining intobladder. No hydronephrosis. The existing percutaneous nephrostomy tubeproved very difficult to remove due to heavy encrustation but wasultimately removed after prolonged effort and advanced techniques. Plan: Patient follow up with urology. PROCEDU RE SUMMARY- Target organ: Unilateral [place] kidney- Antegrade nephrostogram(s) via the existing access- Nephrostomy tube removal- Additional procedure(s): NonePROCEDURE DETAILS:Pre-procedureConse nt: Informed consent for the procedure including risks, benefitsand alternatives was obtained and time-out was performed prior to theprocedure.Preparation: The site was prepared and draped using maximal sterilebarrier technique including cutaneous antisepsis.Anesthesia/corona tionLevel of anesthesia/sedation: General anesthesiaAnesthesia/sedat ion administered by: AnesthesiologyTotal intra-service sedation time (minutes): Not applicableLeft genitourinary catheter removal.Local anesthesia was administered. Initial nephrostogram was performed.A wire could not be placed through the existing tube due to encrustationnor could the existing catheter be removed with traction alone due toencrustation. A zoila wire and catheter were advanced through the tractadjacent to the existing tube and exchanged for a vascular snare. Thesnare was used to free the encrusted tip of the catheter. The backend ofan Amplatz wire was then advanced through the tube as distally into thepigtail as possible after which the catheter could be removed. Pre-existing genitourinary catheter: No hydronephrosis. Patent ureterdraining into bladder.Findings: No hydronephrosis. Patent ureter draining into bladder.ContrastContrast agent: Visipaque 320Contrast volume (mL): 20Radiation DoseFluoroscopy time (minutes): 27 Reference air kerma (mGy): 372 Kerma area product (uGy-m2): 2583 Additional DetailsAdditional description of procedure: NoneEquipment details: NoneSpecimens removed: NoneEstimated blood loss (mL): Less than 10Standardized report: [id number] ttestationSigner name: Allen Flores attest that I was present for the entire procedure. I reviewed thestored images and agree with the report as written.Electronically Signed By: Allen Maynard01/14/2024 13:33 CDTWorkstation Name: [id number] RECOMMENDED COUMADIN/WARFARIN INR THERAPY RANGESSTANDARD DOSE: 2.0 - 3.0 Includes: PROPHYLAXIS for venous thrombosis, systemic embolization; TREATMENT for venous thrombosis and/or pulmonary embolus.HIGH RISK: Target INR is 2.5-3.5 for patients with mechanical heart valves.CBC W/PLT COUNT & AUTO DIFFERENTIAL 2024-01-14 07:13:44* Test Item Value Reference Range Interpretation Comme nts WHITE BLOOD CELL COUNT (BEAK ER) (test code = 775) 10.1 K/ L 3.5-10.5 RED BLOOD CELL COUNT (BEAKER ) (test code = 761) 4.52 M/ L 4.63-6.08 L HEMOGLOBIN (BEAKER) (test co de = 410) 13.8 GM/DL 13.7-17.5 HEMATOCRIT (BEAKER) (test co de = 411) 41.3 % 40.1-51.0 MEAN CORPUSCULAR VOLUME (PAUL KER) (test code = 753) 91 fL 79-92 MEAN CORPUSCULAR HEMOGLOBIN (BEAKER) (test code = 751) 30.5 pg 25.7-32.2 MEAN CORPUSCULAR HEMOGLOBIN CONC (BEAKER) (test code = 752) 33.4 GM/DL 32.3-36.5 RED CELL DISTRIBUTION WIDTH (BEAKER) (test code = 412) 13.8 % 11.6-14.4 PLATELET COUNT (BEAKER) (dionne t code = 756) 300 K/CU MM 150-450 MEAN PLATELET VOLUME (BEAKER ) (test code = 754) 9.7 fL 9.4-12.4 NUCLEATED RED BLOOD CELLS (BEAKER) (test code = 413) 0 /100 WBC 0-0 NEUTROPHILS RELATIVE PERCENT (BEAKER) (test code = 429) 67 % LYMPHOCYTES RELATIVE PERCENT (BEAKER) (test code = 430) 24 % MONOCYTES RELATIVE PERCENT (BEAKER) (test code = 431) 7 % EOSINOPHILS RELATIVE PERCENT (BEAKER) (test code = 432) 2 % BASOPHILS RELATIVE PERCENT (BEAKER) (test code = 437) 1 % NEUTROPHILS ABSOLUTE COUNT (BEAKER) (test code = 670) 6.74 K/ L 1.78-5.38 H LYMPHOCYTES ABSOLUTE COUNT (BEAKER) (test code = 414) 2.37 K/ L 1.32-3.57 MONOCYTES ABSOLUTE COUNT (BE LOLA) (test code = 415) 0.71 K/ L 0.30-0.82 EOSINOPHILS ABSOLUTE COUNT (BEAKER) (test code = 416) 0.17 K/ L 0.04-0.54 BASOPHILS ABSOLUTE COUNT (BE LOLA) (test code = 417) 0.08 K/ L 0.01-0.08 IMMATURE GRANULOCYTES-RELATI VE PERCENT (BEAKER) (test code = 2801) 0.30 % 0.00-1.00 ROBBIE,POST-VOID RES,US,[id number] 00:00:00* Test Item Value Reference Range Interpretation Comme nts PVR (URINE VOLUME) (test code = 5193) 4 ml 0-100 [facility] [id number] 05:01:27* Test Item Value Reference Range Interpretation Comme nts CULTURE (BEAKER) (test code = 1095) No growth in 5 days The specimen volume collected for this blood culture was below the optimum (10 mL per bottle or 20 mL total). Use of lower volumes may adversely affect recovery and/or detection times of some organisms.BASIC METABOLIC PANEL 2023-11-06 04:19:46* Test Item Value Reference Range Interpretation Comme nts SODIUM (BEAKER) (test code = 381) 140 meq/L 136-145 POTASSIUM (BEAKER) (test code = 379) 3.9 meq/L 3.5-5.1 CHLORIDE (BEAKER) (test code = 382) 99 meq/L 98-107 CO2 (BEAKER) (test code = 355) 32 meq/L 22-29 H BLOOD UREA NITROGEN (BEAKER) (test code = 354) 15 mg/dL 9-21 CREATININE (BEAKER) (test code = 358) 0.85 mg/dL 0.72-1.25 GLUCOSE RANDOM (BEAKER) (test code = 652) 83 mg/dL 70-105 CALCIUM (BEAKER) (test code = 697) 10.1 mg/dL 8.4-10.2 EGFR (BEAKER) (test code = 1092) 120 mL/min/1.73 sq m Interpretation of eG FR values Stage Description Result G1 Normal or high >=90 G2 Mildly decreased 60-89 G3a Mildly to moderately 45-59 G3b Moderately to severely 30-44 G4 Severly decreased 15-29 G5 Kidney failure <15Reported eGFR is based on the CKD-EPI 2020 equation that does not use a race coefficientEstimated GFR is not as accurate as Creatinine Clearance in predicting glomerular filtration rate. Estimated GFR is not applicable for dialysis patients CBC W/PLT COUNT & AUTO [id number] 04:06:17* Test Item Value Reference Range Interpretation Comme nts WHITE BLOOD CELL COUNT (BEAK ER) (test code = 775) 8.3 K/ L 3.5-10.5 RED BLOOD CELL COUNT (BEAKER ) (test code = 761) 4.13 M/ L 4.63-6.08 L HEMOGLOBIN (BEAKER) (test co de = 410) 12.8 GM/DL 13.7-17.5 L HEMATOCRIT (BEAKER) (test co de = 411) 39.0 % 40.1-51.0 L MEAN CORPUSCULAR VOLUME (PAUL KER) (test code = 753) 94 fL 79-92 H MEAN CORPUSCULAR HEMOGLOBIN (BEAKER) (test code = 751) 31.0 pg 25.7-32.2 MEAN CORPUSCULAR HEMOGLOBIN CONC (BEAKER) (test code = 752) 32.8 GM/DL 32.3-36.5 RED CELL DISTRIBUTION WIDTH (BEAKER) (test code = 412) 13.8 % 11.6-14.4 PLATELET COUNT (BEAKER) (dionne t code = 756) 500 K/CU MM 150-450 H MEAN PLATELET VOLUME (BEAKER ) (test code = 754) 9.2 fL 9.4-12.4 L NUCLEATED RED BLOOD CELLS (BEAKER) (test code = 413) 0 /100 WBC 0-0 NEUTROPHILS RELATIVE PERCENT (BEAKER) (test code = 429) 58 % LYMPHOCYTES RELATIVE PERCENT (BEAKER) (test code = 430) 32 % MONOCYTES RELATIVE PERCENT (BEAKER) (test code = 431) 6 % EOSINOPHILS RELATIVE PERCENT (BEAKER) (test code = 432) 4 % BASOPHILS RELATIVE PERCENT (BEAKER) (test code = 437) 1 % NEUTROPHILS ABSOLUTE COUNT (BEAKER) (test code = 670) 4.74 K/ L 1.78-5.38 LYMPHOCYTES ABSOLUTE COUNT (BEAKER) (test code = 414) 2.63 K/ L 1.32-3.57 MONOCYTES ABSOLUTE COUNT (BE LOLA) (test code = 415) 0.48 K/ L 0.30-0.82 EOSINOPHILS ABSOLUTE COUNT (BEAKER) (test code = 416) 0.29 K/ L 0.04-0.54 BASOPHILS ABSOLUTE COUNT (BE LOLA) (test code = 417) 0.10 K/ L 0.01-0.08 H IMMATURE GRANULOCYTES-RELATI VE PERCENT (BEAKER) (test code = 2801) 0.20 % 0.00-1.00 URINE [id number] 08:50:41* Test Item Value Reference Range Interpretation Comme nts CULTURE (BEAKER) (test code = 1095) No growth If your patient does not have signs or symptoms of UTI, it is recommended NOT to treat, with the exception of and prior to urologic procedures.BASIC METABOLIC [id number] 05:56:35* Test Item Value Reference Range Interpretation Comme nts SODIUM (BEAKER) (test code = 381) 140 meq/L 136-145 POTASSIUM (BEAKER) (test code = 379) 3.9 meq/L 3.5-5.1 CHLORIDE (BEAKER) (test code = 382) 101 meq/L 98-107 CO2 (BEAKER) (test code = 355) 26 meq/L 22-29 BLOOD UREA NITROGEN (BEAKER) (test code = 354) 9 mg/dL 9-21 CREATININE (BEAKER) (test code = 358) 0.93 mg/dL 0.72-1.25 GLUCOSE RANDOM (BEAKER) (test code = 652) 69 mg/dL 70-105 L CALCIUM (BEAKER) (test code = 697) 10.2 mg/dL 8.4-10.2 EGFR (BEAKER) (test code = 1092) 114 mL/min/1.73 sq m Interpretation of eG FR values Stage Description Result G1 Normal or high >=90 G2 Mildly decreased 60-89 G3a Mildly to moderately 45-59 G3b Moderately to severely 30-44 G4 Severly decreased 15-29 G5 Kidney failure <15Reported eGFR is based on the CKD-EPI 2020 equation that does not use a race coefficientEstimated GFR is not as accurate as Creatinine Clearance in predicting glomerular filtration rate. Estimated GFR is not applicable for dialysis patients CBC W/PLT COUNT & AUTO [id number] 05:09:51* Test Item Value Reference Range Interpretation Comme nts WHITE BLOOD CELL COUNT (BEAK ER) (test code = 775) 7.0 K/ L 3.5-10.5 RED BLOOD CELL COUNT (BEAKER ) (test code = 761) 4.25 M/ L 4.63-6.08 L HEMOGLOBIN (BEAKER) (test co de = 410) 13.2 GM/DL 13.7-17.5 L HEMATOCRIT (BEAKER) (test co de = 411) 39.3 % 40.1-51.0 L MEAN CORPUSCULAR VOLUME (PAUL KER) (test code = 753) 93 fL 79-92 H MEAN CORPUSCULAR HEMOGLOBIN (BEAKER) (test code = 751) 31.1 pg 25.7-32.2 MEAN CORPUSCULAR HEMOGLOBIN CONC (BEAKER) (test code = 752) 33.6 GM/DL 32.3-36.5 RED CELL DISTRIBUTION WIDTH (BEAKER) (test code = 412) 13.9 % 11.6-14.4 PLATELET COUNT (BEAKER) (dionne t code = 756) 510 K/CU MM 150-450 H MEAN PLATELET VOLUME (BEAKER ) (test code = 754) 9.1 fL 9.4-12.4 L NUCLEATED RED BLOOD CELLS (BEAKER) (test code = 413) 0 /100 WBC 0-0 NEUTROPHILS RELATIVE PERCENT (BEAKER) (test code = 429) 45 % LYMPHOCYTES RELATIVE PERCENT (BEAKER) (test code = 430) 44 % MONOCYTES RELATIVE PERCENT (BEAKER) (test code = 431) 6 % EOSINOPHILS RELATIVE PERCENT (BEAKER) (test code = 432) 3 % BASOPHILS RELATIVE PERCENT (BEAKER) (test code = 437) 1 % NEUTROPHILS ABSOLUTE COUNT (BEAKER) (test code = 670) 3.16 K/ L 1.78-5.38 LYMPHOCYTES ABSOLUTE COUNT (BEAKER) (test code = 414) 3.08 K/ L 1.32-3.57 MONOCYTES ABSOLUTE COUNT (BE LOLA) (test code = 415) 0.39 K/ L 0.30-0.82 EOSINOPHILS ABSOLUTE COUNT (BEAKER) (test code = 416) 0.23 K/ L 0.04-0.54 BASOPHILS ABSOLUTE COUNT (BE LOLA) (test code = 417) 0.09 K/ L 0.01-0.08 H IMMATURE GRANULOCYTES-RELATI VE PERCENT (BEAKER) (test code = 2801) 0.30 % 0.00-1.00 [id number] 14:53:09* Test Item Value Reference Range Interpretation Comme nts RPR SCREEN (BEAKER) (test co de = 420) Nonreactive Nonreactive BASIC METABOLIC [id number] 05:02:04* Test Item Value Reference Range Interpretation Comme nts SODIUM (BEAKER) (test code = 381) 141 meq/L 136-145 POTASSIUM (BEAKER) (test code = 379) 4.0 meq/L 3.5-5.1 Specimen slightl y hemolyzed CHLORIDE (BEAKER) (test code = 382) 106 meq/L 98-107 CO2 (BEAKER) (test code = 355) 22 meq/L 22-29 BLOOD UREA NITROGEN (BEAKER) (test code = 354) 7 mg/dL 9-21 L CREATININE (BEAKER) (test code = 358) 0.78 mg/dL 0.72-1.25 Specimen slightl y hemolyzed GLUCOSE RANDOM (BEAKER) (test code = 652) 94 mg/dL 70-105 CALCIUM (BEAKER) (test code = 697) 9.3 mg/dL 8.4-10.2 EGFR (BEAKER) (test code = 1092) 123 mL/min/1.73 sq m Interpretation of eG FR values Stage Description Result G1 Normal or high >=90 G2 Mildly decreased 60-89 G3a Mildly to moderately 45-59 G3b Moderately to severely 30-44 G4 Severly decreased 15-29 G5 Kidney failure <15Reported eGFR is based on the CKD-EPI 2020 equation that does not use a race coefficientEstimated GFR is not as accurate as Creatinine Clearance in predicting glomerular filtration rate. Estimated GFR is not applicable for dialysis patients VANCOMYCIN LEVEL, [id number] 04:29:08* Test Item Value Reference Range Interpretation Comme nts VANCOMYCIN TROUGH (BEAKER) ( test code = 522) 14.5 ug/mL 10.0-20.0 CBC W/PLT COUNT & AUTO [id number] 04:08:23* Test Item Value Reference Range Interpretation Comme nts WHITE BLOOD CELL COUNT (BEAK ER) (test code = 775) 9.3 K/ L 3.5-10.5 RED BLOOD CELL COUNT (BEAKER ) (test code = 761) 3.95 M/ L 4.63-6.08 L HEMOGLOBIN (BEAKER) (test co de = 410) 12.4 GM/DL 13.7-17.5 L HEMATOCRIT (BEAKER) (test co de = 411) 36.7 % 40.1-51.0 L MEAN CORPUSCULAR VOLUME (PAUL KER) (test code = 753) 93 fL 79-92 H MEAN CORPUSCULAR HEMOGLOBIN (BEAKER) (test code = 751) 31.4 pg 25.7-32.2 MEAN CORPUSCULAR HEMOGLOBIN CONC (BEAKER) (test code = 752) 33.8 GM/DL 32.3-36.5 RED CELL DISTRIBUTION WIDTH (BEAKER) (test code = 412) 13.9 % 11.6-14.4 PLATELET COUNT (BEAKER) (dionne t code = 756) 466 K/CU MM 150-450 H MEAN PLATELET VOLUME (BEAKER ) (test code = 754) 9.1 fL 9.4-12.4 L NUCLEATED RED BLOOD CELLS (BEAKER) (test code = 413) 0 /100 WBC 0-0 NEUTROPHILS RELATIVE PERCENT (BEAKER) (test code = 429) 55 % LYMPHOCYTES RELATIVE PERCENT (BEAKER) (test code = 430) 36 % MONOCYTES RELATIVE PERCENT (BEAKER) (test code = 431) 6 % EOSINOPHILS RELATIVE PERCENT (BEAKER) (test code = 432) 2 % BASOPHILS RELATIVE PERCENT (BEAKER) (test code = 437) 1 % NEUTROPHILS ABSOLUTE COUNT (BEAKER) (test code = 670) 5.11 K/ L 1.78-5.38 LYMPHOCYTES ABSOLUTE COUNT (BEAKER) (test code = 414) 3.29 K/ L 1.32-3.57 MONOCYTES ABSOLUTE COUNT (BE LOLA) (test code = 415) 0.56 K/ L 0.30-0.82 EOSINOPHILS ABSOLUTE COUNT (BEAKER) (test code = 416) 0.21 K/ L 0.04-0.54 BASOPHILS ABSOLUTE COUNT (BE LOLA) (test code = 417) 0.08 K/ L 0.01-0.08 IMMATURE GRANULOCYTES-RELATI VE PERCENT (BEAKER) (test code = 2801) 0.30 % 0.00-1.00 URINALYSIS W/ REFLEX URINE [id number] 06:51:08* Test Item Value Reference Range Interpretation Comme nts COLOR (BEAKER) (test code = 470) Colorless CLARITY (BEAKER) (test code = 469) Hazy SPECIFIC GRAVITY UA (BEAKER) (test code = 468) 1.036 1.001-1.035 H PH UA (BEAKER) (test code = 467) 6.5 5.0-8.0 PROTEIN UA (BEAKER) (test co de = 464) 30 mg/dL Negative A GLUCOSE UA (BEAKER) (test co de = 365) Negative Negative KETONES UA (BEAKER) (test co de = 371) Negative Negative BILIRUBIN UA (BEAKER) (test code = 462) Negative Negative BLOOD UA (BEAKER) (test code = 461) Moderate Negative A NITRITE UA (BEAKER) (test co de = 465) Positive Negative A LEUKOCYTE ESTERASE UA (BEAKE R) (test code = 466) Large Negative A UROBILINOGEN UA (BEAKER) (te st code = 463) 0.2 0.2-1.0 RBC UA (BEAKER) (test code = 519) 142 /HPF WBC UA (BEAKER) (test code = 520) 66 /HPF BACTERIA (BEAKER) (test code = 517) Rare MUCUS (BEAKER) (test code = 1574) Rare SOURCE(BEAKER) (test code = 2795) [place] Slabs Sawyer ID - [auto]C[place] Slabs Sawyer ID - techHEPATIC FUNCTION [id number] 03:49:33 * Test Item Value Reference Range Interpretation Comme nts TOTAL PROTEIN (BEAKER) (test code = 770) 7.3 gm/dL 6.4-8.3 ALBUMIN (BEAKER) (test code = 1145) 3.6 g/dL 3.5-5.0 BILIRUBIN TOTAL (BEAKER) (te st code = 377) 1.4 mg/dL 0.2-1.2 H BILIRUBIN DIRECT (BEAKER) (t est code = 706) 0.6 mg/dL 0.1-0.5 H ALKALINE PHOSPHATASE (BEAKER ) (test code = 346) 93 U/L 40-150 AST (SGOT) (BEAKER) (test co de = 353) 17 U/L 5-34 ALT (SGPT) (BEAKER) (test co de = 347) 25 U/L <55 VITAMIN [id number] 03:41:51* Test Item Value Reference Range Interpretation Comme nts VITAMIN B12 (BEAKER) (test c ode = 774) 268 pg/mL 213-816 TSH/FREE T4 IF [id number] 03:41:51* Test Item Value Reference Range Interpretation Comme nts THYROID STIMULATING HORMONE (BEAKER) (test code = 772) 2.503 uIU/mL 0.350-4.940 BASIC METABOLIC [id number] 03:16:47* Test Item Value Reference Range Interpretation Comme nts SODIUM (BEAKER) (test code = 381) 139 meq/L 136-145 POTASSIUM (BEAKER) (test code = 379) 3.7 meq/L 3.5-5.1 CHLORIDE (BEAKER) (test code = 382) 107 meq/L 98-107 CO2 (BEAKER) (test code = 355) 20 meq/L 22-29 L BLOOD UREA NITROGEN (BEAKER) (test code = 354) 8 mg/dL 9-21 L CREATININE (BEAKER) (test code = 358) 0.83 mg/dL 0.72-1.25 GLUCOSE RANDOM (BEAKER) (test code = 652) 91 mg/dL 70-105 CALCIUM (BEAKER) (test code = 697) 9.9 mg/dL 8.4-10.2 EGFR (BEAKER) (test code = 1092) 121 mL/min/1.73 sq m Interpretation of eG FR values Stage Description Result G1 Normal or high >=90 G2 Mildly decreased 60-89 G3a Mildly to moderately 45-59 G3b Moderately to severely 30-44 G4 Severly decreased 15-29 G5 Kidney failure <15Reported eGFR is based on the CKD-EPI 2020 equation that does not use a race coefficientEstimated GFR is not as accurate as Creatinine Clearance in predicting glomerular filtration rate. Estimated GFR is not applicable for dialysis patients ACETAMINOPHEN [id number] 03:14:49* Test Item Value Reference Range Interpretation Comme nts ACETAMINOPHEN LEVEL (BEAKER) (test code = 344) < ug/mL 10.0-30.0 L Therapeutic Range: 10.0-30.0 g/mLToxic Levels: 4 hours > 150.0 g/mL 24 hours > 4.7 ug/mLLACTIC ACID, [id number] 02:53:23* Test Item Value Reference Range Interpretation Comme nts LACTATE BLOOD VENOUS (2) (BEAKER) (test code = 2872) 1.68 mmol/L 0.50-2.00 Specimen slightl y hemolyzed CBC W/PLT COUNT & AUTO [id number] 02:52:33* Test Item Value Reference Range Interpretation Comme nts WHITE BLOOD CELL COUNT (BEAK ER) (test code = 775) 18.2 K/ L 3.5-10.5 H RED BLOOD CELL COUNT (BEAKER ) (test code = 761) 4.05 M/ L 4.63-6.08 L HEMOGLOBIN (BEAKER) (test co de = 410) 12.7 GM/DL 13.7-17.5 L HEMATOCRIT (BEAKER) (test co de = 411) 37.6 % 40.1-51.0 L MEAN CORPUSCULAR VOLUME (PAUL KER) (test code = 753) 93 fL 79-92 H MEAN CORPUSCULAR HEMOGLOBIN (BEAKER) (test code = 751) 31.4 pg 25.7-32.2 MEAN CORPUSCULAR HEMOGLOBIN CONC (BEAKER) (test code = 752) 33.8 GM/DL 32.3-36.5 RED CELL DISTRIBUTION WIDTH (BEAKER) (test code = 412) 13.8 % 11.6-14.4 PLATELET COUNT (BEAKER) (dionne t code = 756) 569 K/CU MM 150-450 H MEAN PLATELET VOLUME (BEAKER ) (test code = 754) 9.3 fL 9.4-12.4 L NUCLEATED RED BLOOD CELLS (BEAKER) (test code = 413) 0 /100 WBC 0-0 NEUTROPHILS RELATIVE PERCENT (BEAKER) (test code = 429) 70 % LYMPHOCYTES RELATIVE PERCENT (BEAKER) (test code = 430) 23 % MONOCYTES RELATIVE PERCENT (BEAKER) (test code = 431) 5 % EOSINOPHILS RELATIVE PERCENT (BEAKER) (test code = 432) 1 % BASOPHILS RELATIVE PERCENT (BEAKER) (test code = 437) 1 % NEUTROPHILS ABSOLUTE COUNT (BEAKER) (test code = 670) 12.78 K/ L 1.78-5.38 H LYMPHOCYTES ABSOLUTE COUNT (BEAKER) (test code = 414) 4.18 K/ L 1.32-3.57 H MONOCYTES ABSOLUTE COUNT (BE LOLA) (test code = 415) 0.96 K/ L 0.30-0.82 H EOSINOPHILS ABSOLUTE COUNT (BEAKER) (test code = 416) 0.09 K/ L 0.04-0.54 BASOPHILS ABSOLUTE COUNT (BE LOLA) (test code = 417) 0.09 K/ L 0.01-0.08 H IMMATURE GRANULOCYTES-RELATI VE PERCENT (BEAKER) (test code = 2801) 0.40 % 0.00-1.00 BLOOD [id number] 20:00:31* Test Item Value Reference Range Interpretation Comme nts CULTURE (ANNA) (test code = 1095) No growth in 5 days URINE [id number] 10:23:34* Test Item Value Reference Range Interpretation Comme nts CULTURE (ANNA) (test code = 1095) ENTEROCOCCUS FAECALIS A 10-19,000 col/mL Enterococcus faecalis Ampicillin (test code = 26) S Linezolid (test code = 40) S Nitrofurantoin (test code = 23) S Tetracycline (test code = 2) R Vancomycin (test code = 13) S <10,000 col/mL skin floraIf your patient does not have signs or symptoms of UTI, it is recommended NOT to treat, with the exception of and prior to urologic procedures.URINE [id number] 10:17:50* Test Item Value Reference Range Interpretation Comme nts CULTURE (ANNA) (test code = 1095) ENTEROCOCCUS FAECALIS A 30-39,000 col/mL Enterococcus faecalis Ampicillin (test code = 26) S Linezolid (test code = 40) S Nitrofurantoin (test code = 23) S Tetracycline (test code = 2) R Vancomycin (test code = 13) S <10,000 col/mL skin floraIf your patient does not have signs or symptoms of UTI, it is recommended NOT to treat, with the exception of and prior to urologic procedures.BUN AND CREATININE [id number] 04:56:48* Test Item Value Reference Range Interpretation Comme nts BLOOD UREA NITROGEN ([facility]) (test code = 354) 6 mg/dL 9-21 L CREATININE ([facility]) (test code = 358) 0.72 mg/dL 0.72-1.25 BUN/CREAT RATIO ([facility]) (test code = 7726193893) 8 For a normal ind ividual on a normal diet, the reference interval for the mass ratio ranges between 12:1 and 20:1 (BUN in mg/dL/creatinine in mg/dL) EGFR ([facility]) (test code = 1092) 125 mL/min/1.73 sq m Interpretation of eG FR values Stage Description Result G1 Normal or high >=90 G2 Mildly decreased 60-89 G3a Mildly to moderately 45-59 G3b Moderately to severely 30-44 G4 Severly decreased 15-29 G5 Kidney failure <15Reported eGFR is based on the CKD-EPI 2021 equation that does not use a race coefficientEstimated GFR is not as accurate as Creatinine Clearance in predicting glomerular filtration rate. Estimated GFR is not applicable for dialysis patients COMPREHENSIVE METABOLIC [id number] 04:49:15* Test Item Value Reference Range Interpretation Comme nts TOTAL PROTEIN (BEAKER) (test code = 770) 6.6 gm/dL 6.4-8.3 ALBUMIN (BEAKER) (test code = 1145) 2.9 g/dL 3.5-5.0 L ALKALINE PHOSPHATASE (BEAKER) (test code = 346) 93 U/L 40-150 BILIRUBIN TOTAL (BEAKER) (test code = 377) 1.5 mg/dL 0.2-1.2 H SODIUM (BEAKER) (test code = 381) 139 meq/L 136-145 POTASSIUM (BEAKER) (test code = 379) 3.6 meq/L 3.5-5.1 CHLORIDE (BEAKER) (test code = 382) 105 meq/L 98-107 CO2 (BEAKER) (test code = 355) 24 meq/L 22-29 BLOOD UREA NITROGEN (BEAKER) (test code = 354) 6 mg/dL 9-21 L CREATININE (BEAKER) (test code = 358) 0.72 mg/dL 0.72-1.25 GLUCOSE RANDOM (BEAKER) (test code = 652) 98 mg/dL 70-105 CALCIUM (BEAKER) (test code = 697) 9.2 mg/dL 8.4-10.2 AST (SGOT) (BEAKER) (test code = 353) 14 U/L 5-34 ALT (SGPT) (BEAKER) (test code = 347) 13 U/L <55 EGFR (BEAKER) (test code = 1092) 125 mL/min/1.73 sq m Interpretation of eG FR values Stage Description Result G1 Normal or high >=90 G2 Mildly decreased 60-89 G3a Mildly to moderately 45-59 G3b Moderately to severely 30-44 G4 Severly decreased 15-29 G5 Kidney failure <15Reported eGFR is based on the CKD-EPI 2021 equation that does not use a race coefficientEstimated GFR is not as accurate as Creatinine Clearance in predicting glomerular filtration rate. Estimated GFR is not applicable for dialysis patients CBC (HEMOGRAM ONLY)2023-10-25 04:34:45* Test Item Value Reference Range Interpretation Comme nts WHITE BLOOD CELL COUNT (BEAK ER) (test code = 775) 11.9 K/ L 3.5-10.5 H RED BLOOD CELL COUNT (BEAKER ) (test code = 761) 3.66 M/ L 4.63-6.08 L HEMOGLOBIN (BEAKER) (test co de = 410) 11.3 GM/DL 13.7-17.5 L HEMATOCRIT (BEAKER) (test co de = 411) 33.2 % 40.1-51.0 L MEAN CORPUSCULAR VOLUME (PAUL KER) (test code = 753) 91 fL 79-92 MEAN CORPUSCULAR HEMOGLOBIN (BEAKER) (test code = 751) 30.9 pg 25.7-32.2 MEAN CORPUSCULAR HEMOGLOBIN CONC (BEAKER) (test code = 752) 34.0 GM/DL 32.3-36.5 RED CELL DISTRIBUTION WIDTH (BEAKER) (test code = 412) 13.3 % 11.6-14.4 PLATELET COUNT (BEAKER) (dionne t code = 756) 287 K/CU MM 150-450 MEAN PLATELET VOLUME (BEAKER ) (test code = 754) 9.8 fL 9.4-12.4 NUCLEATED RED BLOOD CELLS (BEAKER) (test code = 413) 0 /100 WBC 0-0 VANCOMYCIN LEVEL, [id number] 10:34:31* Test Item Value Reference Range Interpretation Comme nts VANCOMYCIN TROUGH (BEAKER) ( test code = 522) 4.9 ug/mL 10.0-20.0 L BASIC METABOLIC [id number] 06:58:11* Test Item Value Reference Range Interpretation Comme nts SODIUM (BEAKER) (test code = 381) 138 meq/L 136-145 POTASSIUM (BEAKER) (test code = 379) 3.2 meq/L 3.5-5.1 L CHLORIDE (BEAKER) (test code = 382) 102 meq/L 98-107 CO2 (BEAKER) (test code = 355) 23 meq/L 22-29 BLOOD UREA NITROGEN (BEAKER) (test code = 354) 5 mg/dL 9-21 L CREATININE (BEAKER) (test code = 358) 0.67 mg/dL 0.72-1.25 L GLUCOSE RANDOM (BEAKER) (test code = 652) 98 mg/dL 70-105 CALCIUM (BEAKER) (test code = 697) 9.0 mg/dL 8.4-10.2 EGFR (BEAKER) (test code = 1092) 127 mL/min/1.73 sq m Interpretation of eG FR values Stage Description Result G1 Normal or high >=90 G2 Mildly decreased 60-89 G3a Mildly to moderately 45-59 G3b Moderately to severely 30-44 G4 Severly decreased 15-29 G5 Kidney failure <15Reported eGFR is based on the CKD-EPI 2020 equation that does not use a race coefficientEstimated GFR is not as accurate as Creatinine Clearance in predicting glomerular filtration rate. Estimated GFR is not applicable for dialysis patients CBC (HEMOGRAM ONLY)2023-10-24 06:45:02* Test Item Value Reference Range Interpretation Comme nts WHITE BLOOD CELL COUNT (BEAK ER) (test code = 775) 17.1 K/ L 3.5-10.5 H RED BLOOD CELL COUNT (BEAKER ) (test code = 761) 3.78 M/ L 4.63-6.08 L HEMOGLOBIN (BEAKER) (test co de = 410) 11.7 GM/DL 13.7-17.5 L HEMATOCRIT (BEAKER) (test co de = 411) 34.3 % 40.1-51.0 L MEAN CORPUSCULAR VOLUME (PAUL KER) (test code = 753) 91 fL 79-92 MEAN CORPUSCULAR HEMOGLOBIN (BEAKER) (test code = 751) 31.0 pg 25.7-32.2 MEAN CORPUSCULAR HEMOGLOBIN CONC (BEAKER) (test code = 752) 34.1 GM/DL 32.3-36.5 RED CELL DISTRIBUTION WIDTH (BEAKER) (test code = 412) 13.3 % 11.6-14.4 PLATELET COUNT (BEAKER) (dionne t code = 756) 235 K/CU MM 150-450 MEAN PLATELET VOLUME (BEAKER ) (test code = 754) 9.2 fL 9.4-12.4 L NUCLEATED RED BLOOD CELLS (BEAKER) (test code = 413) 0 /100 WBC 0-0 BUN AND CREATININE [id number] 06:32:59* Test Item Value Reference Range Interpretation Comme nts BLOOD UREA NITROGEN (BEAKER) (test code = 354) 5 mg/dL 9-21 L CREATININE (BEAKER) (test code = 358) 0.69 mg/dL 0.72-1.25 L BUN/CREAT RATIO (BEAKER) (test code = 9465195166) 7 For a normal ind ividual on a normal diet, the reference interval for the mass ratio ranges between 12:1 and 20:1 (BUN in mg/dL/creatinine in mg/dL) EGFR (BEAKER) (test code = 1092) 126 mL/min/1.73 sq m Interpretation of eG FR values Stage Description Result G1 Normal or high >=90 G2 Mildly decreased 60-89 G3a Mildly to moderately 45-59 G3b Moderately to severely 30-44 G4 Severly decreased 15-29 G5 Kidney failure <15Reported eGFR is based on the CKD-EPI 2020 equation that does not use a race coefficientEstimated GFR is not as accurate as Creatinine Clearance in predicting glomerular filtration rate. Estimated GFR is not applicable for dialysis patients COMPREHENSIVE METABOLIC [id number] 12:17:55* Test Item Value Reference Range Interpretation Comme nts TOTAL PROTEIN (BEAKER) (test code = 770) 6.8 gm/dL 6.4-8.3 ALBUMIN (BEAKER) (test code = 1145) 3.3 g/dL 3.5-5.0 L ALKALINE PHOSPHATASE (BEAKER) (test code = 346) 112 U/L 40-150 BILIRUBIN TOTAL (BEAKER) (test code = 377) 0.9 mg/dL 0.2-1.2 SODIUM (BEAKER) (test code = 381) 139 meq/L 136-145 POTASSIUM (BEAKER) (test code = 379) 3.2 meq/L 3.5-5.1 L CHLORIDE (BEAKER) (test code = 382) 101 meq/L 98-107 CO2 (BEAKER) (test code = 355) 20 meq/L 22-29 L BLOOD UREA NITROGEN (BEAKER) (test code = 354) 5 mg/dL 9-21 L CREATININE (BEAKER) (test code = 358) 0.77 mg/dL 0.72-1.25 GLUCOSE RANDOM (BEAKER) (test code = 652) 58 mg/dL 70-105 L CALCIUM (BEAKER) (test code = 697) 9.1 mg/dL 8.4-10.2 AST (SGOT) (BEAKER) (test code = 353) 16 U/L 5-34 ALT (SGPT) (BEAKER) (test code = 347) 14 U/L <55 EGFR (BEAKER) (test code = 1092) 123 mL/min/1.73 sq m Interpretation of eG FR values Stage Description Result G1 Normal or high >=90 G2 Mildly decreased 60-89 G3a Mildly to moderately 45-59 G3b Moderately to severely 30-44 G4 Severly decreased 15-29 G5 Kidney failure <15Reported eGFR is based on the CKD-EPI 2020 equation that does not use a race coefficientEstimated GFR is not as accurate as Creatinine Clearance in predicting glomerular filtration rate. Estimated GFR is not applicable for dialysis patients CBC (HEMOGRAM ONLY)2023-10-23 12:00:03* Test Item Value Reference Range Interpretation Comme nts WHITE BLOOD CELL COUNT (BEAK ER) (test code = 775) 23.5 K/ L 3.5-10.5 H RED BLOOD CELL COUNT (BEAKER ) (test code = 761) 3.89 M/ L 4.63-6.08 L HEMOGLOBIN (BEAKER) (test co de = 410) 12.1 GM/DL 13.7-17.5 L HEMATOCRIT (BEAKER) (test co de = 411) 35.9 % 40.1-51.0 L MEAN CORPUSCULAR VOLUME (PAUL KER) (test code = 753) 92 fL 79-92 MEAN CORPUSCULAR HEMOGLOBIN (BEAKER) (test code = 751) 31.1 pg 25.7-32.2 MEAN CORPUSCULAR HEMOGLOBIN CONC (BEAKER) (test code = 752) 33.7 GM/DL 32.3-36.5 RED CELL DISTRIBUTION WIDTH (BEAKER) (test code = 412) 13.6 % 11.6-14.4 PLATELET COUNT (BEAKER) (dionne t code = 756) 240 K/CU MM 150-450 MEAN PLATELET VOLUME (BEAKER ) (test code = 754) 10.4 fL 9.4-12.4 NUCLEATED RED BLOOD CELLS (BEAKER) (test code = 413) 0 /100 WBC 0-0 IR NEPHROSTOMY TUBE CHANGE - [id number] 17:08:58 [facility]Name[facility]IR : 1990 Sex: MPROCEDURE: Genitourinary catheter exchangeProcedural PersonnelAttending physician(s): Tien Russell physician(s): Vanessa Cervantes MDPre-procedure diagnosis: PCN place.Post-procedure diagnosis: SameIndication: Routine scheduled exchangeAdditional clinical history: NoneComplications: No immediate complications.IMPRESSION:Successful uncomplicated exchange of left PCN.Plan: Catheter displays an expected degree of encrustation, recommend routineexchange q.4 weeks. PROCEDURE SUMMARY- Target organ: Unilateral [place] kidney- Antegrade nephrostogram(s) via the existing access- Nephrostomy tube exchange- Additional procedure(s): NonePROCEDURE DETAILS:Pre- procedureConsent: Informed consent for the procedure including risks, benef itsand alternatives was obtained and time-out was performed prior to theprocedure.Preparation: The site was prepared and draped using maximal sterilebarrier technique including cutaneous antisepsis.Anesthesia/sedationLevel of anesthesia/sedation: Moderate sedation (conscious sedation)Anesthesia/corona tion administered by: Independent trained observer underattending supervision with continuous monitoring of the patient?s levelof consciousness and physiologic statusTotal intra-service sedation time(minutes): 30Left genitourinary catheter exchangeLocal anesthesia was administered. Initial nephrostogram was performed.A wire was placed through the existing tube and it was removed. 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 Unexpected degree ofcatheter encrustation.External catheter securement: Non-absorbable suture ContrastContrast agent: Isovue 300Radiation DoseFluoroscopy time (minutes): 8.0 Reference air kerma (mGy): 33.1 Additional DetailsAdditional description of procedure: NoneEquipment details: NoneSpecimens removed: NoneEstimated blood loss (mL): Less than 5Electronically Signed By: Tien Huang10/22/2023 17:11 CDTWorkstation Name: [id number] METABOLIC [id number] 03:44:37* Test Item Value Reference Range Interpretation Comme nts TOTAL PROTEIN (BEAKER) (test code = 770) 6.7 gm/dL 6.4-8.3 ALBUMIN (BEAKER) (test code = 1145) 3.5 g/dL 3.5-5.0 ALKALINE PHOSPHATASE (BEAKER) (test code = 346) 92 U/L 40-150 BILIRUBIN TOTAL (BEAKER) (test code = 377) 1.8 mg/dL 0.2-1.2 H SODIUM (BEAKER) (test code = 381) 140 meq/L 136-145 POTASSIUM (BEAKER) (test code = 379) 3.7 meq/L 3.5-5.1 CHLORIDE (BEAKER) (test code = 382) 106 meq/L 98-107 CO2 (BEAKER) (test code = 355) 25 meq/L 22-29 BLOOD UREA NITROGEN (BEAKER) (test code = 354) 11 mg/dL 9-21 CREATININE (BEAKER) (test code = 358) 0.94 mg/dL 0.72-1.25 GLUCOSE RANDOM (BEAKER) (test code = 652) 107 mg/dL 70-105 H CALCIUM (BEAKER) (test code = 697) 9.4 mg/dL 8.4-10.2 AST (SGOT) (BEAKER) (test code = 353) 15 U/L 5-34 ALT (SGPT) (BEAKER) (test code = 347) 16 U/L <55 EGFR ([facility]AK[facility]) (test code = 1092) 112 mL/min/1.73 sq m Interpretation of eG FR values Stage Description Result G1 Normal or high >=90 G2 Mildly decreased 60-89 G3a Mildly to moderately 45-59 G3b Moderately to severely 30-44 G4 Severly decreased 15-29 G5 Kidney failure <15Reported eGFR is based on the CKD-EPI 2020 equation that does not use a race coefficientEstimated GFR is not as accurate as Creatinine Clearance in predicting glomerular filtration rate. Estimated GFR is not applicable for dialysis patients [id number] 03:44:37* Test Item Value Reference Range Interpretation Comme nts MAGNESIUM (BEAKER) (test cod e = 627) 1.8 mg/dL 1.6-2.6 [id number] 03:44:37* Test Item Value Reference Range Interpretation Comme nts PHOSPHORUS (BEAKER) (test co de = 604) 3.6 mg/dL 2.3-4.7 CBC W/PLT COUNT & AUTO [id number] 03:30:26* Test Item Value Reference Range Interpretation Comme nts WHITE BLOOD CELL COUNT (BEAK ER) (test code = 775) 15.9 K/ L 3.5-10.5 H RED BLOOD CELL COUNT (BEAKER ) (test code = 761) 4.09 M/ L 4.63-6.08 L HEMOGLOBIN (BEAKER) (test co de = 410) 12.7 GM/DL 13.7-17.5 L HEMATOCRIT (BEAKER) (test co de = 411) 38.0 % 40.1-51.0 L MEAN CORPUSCULAR VOLUME ([facility]) (test code = 753) 93 fL 79-92 H MEAN CORPUSCULAR HEMOGLOBIN (BEAKER) (test code = 751) 31.1 pg 25.7-32.2 MEAN CORPUSCULAR HEMOGLOBIN CONC (BEAKER) (test code = 752) 33.4 GM/DL 32.3-36.5 RED CELL DISTRIBUTION WIDTH (BEAKER) (test code = 412) 13.3 % 11.6-14.4 PLATELET COUNT (BEAKER) (dionne t code = 756) 321 K/CU MM 150-450 MEAN PLATELET VOLUME (BEAKER ) (test code = 754) 9.4 fL 9.4-12.4 NUCLEATED RED BLOOD CELLS (BEAKER) (test code = 413) 0 /100 WBC 0-0 NEUTROPHILS RELATIVE PERCENT (BEAKER) (test code = 429) 86 % LYMPHOCYTES RELATIVE PERCENT (BEAKER) (test code = 430) 7 % MONOCYTES RELATIVE PERCENT (BEAKER) (test code = 431) 6 % EOSINOPHILS RELATIVE PERCENT (BEAKER) (test code = 432) 0 % BASOPHILS RELATIVE PERCENT (BEAKER) (test code = 437) 0 % NEUTROPHILS ABSOLUTE COUNT (BEAKER) (test code = 670) 13.72 K/ L 1.78-5.38 H LYMPHOCYTES ABSOLUTE COUNT (BEAKER) (test code = 414) 1.11 K/ L 1.32-3.57 L MONOCYTES ABSOLUTE COUNT (BE LOLA) (test code = 415) 0.95 K/ L 0.30-0.82 H EOSINOPHILS ABSOLUTE COUNT (BEAKER) (test code = 416) 0.01 K/ L 0.04-0.54 L BASOPHILS ABSOLUTE COUNT (BE LOLA) (test code = 417) 0.04 K/ L 0.01-0.08 IMMATURE GRANULOCYTES-RELATI VE PERCENT (BEAKER) (test code = 2801) 0.60 % 0.00-1.00 BASIC METABOLIC [id number] 15:28:10* Test Item Value Reference Range Interpretation Comme nts SODIUM (BEAKER) (test code = 381) 135 meq/L 136-145 L POTASSIUM (BEAKER) (test code = 379) 4.2 meq/L 3.5-4.5 Specimen slightl y hemolyzed CHLORIDE (BEAKER) (test code = 382) 101 meq/L 98-107 CO2 (BEAKER) (test code = 355) 24 meq/L 22-29 BLOOD UREA NITROGEN (BEAKER) (test code = 354) 11 mg/dL 9-21 CREATININE (BEAKER) (test code = 358) 0.82 mg/dL 0.72-1.25 Specimen slightl y hemolyzed GLUCOSE RANDOM (BEAKER) (test code = 652) 109 mg/dL 70-105 H CALCIUM (BEAKER) (test code = 697) 9.7 mg/dL 8.4-10.2 EGFR (BEAKER) (test code = 1092) 121 mL/min/1.73 sq m Interpretation of eG FR values Stage Description Result G1 Normal or high >=90 G2 Mildly decreased 60-89 G3a Mildly to moderately 45-59 G3b Moderately to severely 30-44 G4 Severly decreased 15-29 G5 Kidney failure <15Reported eGFR is based on the CKD-EPI 2020 equation that does not use a race coefficientEstimated GFR is not as accurate as Creatinine Clearance in predicting glomerular filtration rate. Estimated GFR is not applicable for dialysis patients XR ABDOMEN/KUB 1 VIEW [id number] 14:51:26 [facility]ENTERName: J[facility]IAN [facility]IR : 1990 Sex: MEXAMINATION: XR ABDOMEN/KUB 1 VIEW PORTABLE INDICATION: PAINCOMPARISON: None FINDINGS/IMPRESSION:Nonobstructive bowel gas pattern. Moderate colonic stool burdensuggestive of constipation. Nephrostomy catheter overlies the lefthemiabdomen, in the expected location of the renal pelvis.Electronically SignedBy: Anthony Adame09/28/2023 14:53 CDTWorkstation Name: [id number] URINALYSIS W/ REFLEX URINE [id number] 14:44:34* Test Item Value Reference Range Interpretation Comme nts COLOR (BEAKER) (test code = 470) Brown CLARITY (BEAKER) (test code = 469) Cloudy SPECIFIC GRAVITY UA (BEAKER) (test code = 468) 1.016 1.001-1.035 PH UA (BEAKER) (test code = 467) 7.5 5.0-8.0 PROTEIN UA (BEAKER) (test co de = 464) 100 mg/dL Negative A GLUCOSE UA (BEAKER) (test co de = 365) Negative Negative KETONES UA (BEAKER) (test co de = 371) Negative Negative BILIRUBIN UA (BEAKER) (test code = 462) Negative Negative BLOOD UA (BEAKER) (test code = 461) Large Negative A NITRITE UA (BEAKER) (test co de = 465) Positive Negative A LEUKOCYTE ESTERASE UA ([facility] R) (test code = 466) Moderate Negative A UROBILINOGEN UA (BEAKER) (te st code = 463) 0.2 0.2-1.0 RBC UA (BEAKER) (test code = 519) > /HPF WBC UA (BEAKER) (test code = 520) 166 /HPF BACTERIA (BEAKER) (test code = 517) Many MUCUS (BEAKER) (test code = 1574) Occasional YEAST (BEAKER) (test code = 1585) Many SOURCE(BEAKER) (test code = 7246) [place] [employer]yer ID - [auto][place] Sawyer ID - techCBC W/PLT COUNT & AUTO DIFFERENTIAL 2023-09-28 14:10:38* Test Item Value Reference Range Interpretation Comme nts WHITE BLOOD CELL COUNT (BEAK ER) (test code = 775) 17.3 K/ L 3.5-10.5 H RED BLOOD CELL COUNT (BEAKER ) (test code = 761) 4.45 M/ L 4.63-6.08 L HEMOGLOBIN (BEAKER) (test co de = 410) 13.7 GM/DL 13.7-17.5 HEMATOCRIT (BEAKER) (test co de = 411) 41.4 % 40.1-51.0 MEAN CORPUSCULAR VOLUME (PAUL KER) (test code = 753) 93 fL 79-92 H MEAN CORPUSCULAR HEMOGLOBIN (BEAKER) (test code = 751) 30.8 pg 25.7-32.2 MEAN CORPUSCULAR HEMOGLOBIN CONC (BEAKER) (test code = 752) 33.1 GM/DL 32.3-36.5 RED CELL DISTRIBUTION WIDTH (BEAKER) (test code = 412) 13.2 % 11.6-14.4 PLATELET COUNT (BEAKER) (dionne t code = 756) 346 K/CU MM 150-450 MEAN PLATELET VOLUME (BEAKER ) (test code = 754) 9.4 fL 9.4-12.4 NUCLEATED RED BLOOD CELLS (BEAKER) (test code = 413) 0 /100 WBC 0-0 NEUTROPHILS RELATIVE PERCENT (BEAKER) (test code = 429) 75 % LYMPHOCYTES RELATIVE PERCENT (BEAKER) (test code = 430) 17 % MONOCYTES RELATIVE PERCENT (BEAKER) (test code = 431) 6 % EOSINOPHILS RELATIVE PERCENT (BEAKER) (test code = 432) 1 % BASOPHILS RELATIVE PERCENT (BEAKER) (test code = 437) 1 % NEUTROPHILS ABSOLUTE COUNT (BEAKER) (test code = 670) 12.97 K/ L 1.78-5.38 H LYMPHOCYTES ABSOLUTE COUNT (BEAKER) (test code = 414) 2.99 K/ L 1.32-3.57 MONOCYTES ABSOLUTE COUNT (BE LOLA) (test code = 415) 1.05 K/ L 0.30-0.82 H EOSINOPHILS ABSOLUTE COUNT (BEAKER) (test code = 416) 0.13 K/ L 0.04-0.54 BASOPHILS ABSOLUTE COUNT (BE LOLA) (test code = 417) 0.11 K/ L 0.01-0.08 H IMMATURE GRANULOCYTES-RELATI VE PERCENT (BEAKER) (test code = 2801) 0.50 % 0.00-1.00 IR PERCUTANEOUS NEPHROSTOMY - EXT. DRAIN [id number] 16:27:[facility] : 1990 Sex: MLeft percutaneous nephrostomy catheter placementClinical History: Left-sided hydronephrosis secondary to ureteral stone.Modality: Sonography and fluoroscopy Replanting Machine Crew: Chino Santos MD.Customs Opener Verifier Packer: Vanessa Cervantes MD (fellow). Sedation: Moderate sedation was administered. 3 mg of Versed and 150mcgof fentanyl IV was used for moderate sedation monitored under mydirection. Total intra-service time of sedation was 30 minutes. Thepatient's vital signs were monitored throughout the procedure andrecorded in the patient's medical record by the nurse. Estimated BloodLoss: Less than 5 cc.Specimen: None.Fluoroscopy Time: 1.3 min.Reference Air Kerma (Ka, r): 7.4 mGy.Technique: Informed written consent was obtained. Discussion of risks, benefits,and alternatives were made with the patient. The patient expressedunderstanding and agreed to proceed. A universal timeout was performedprior to starting the procedure. All elements maximal sterile barriertechnique was utilized for this procedure, including utilization ofsterile scrub solution for skin prep, a large sterile sheet to cover theareas of the patient that were not prepped, and hand hygiene, mask, headcovering, and sterile gown for performing radiologist and scrubtechnologist.Initial noncontrast axial images demonstrate mild left-sidedhydronephrosis. 2% lidocaine was used for local anesthesia. Usingultrasound guidance, a 21-gauge Chibaneedle was advanced into aninterpole calyx. Gentle contrast injection confirmed intraluminalpositioning within the calyx. A 0.018 inch wire was advanced throughneedle and curled within the proximal ureter above the known ureteralstone. The needle was exchanged for a AccuStick sheath. A 0.035 inchwire was advanced through the AccuStick sheath and curled within theproximal ureter. The tract was dilated and a 8.5 Dutch drainagecatheter was advanced over wire with pigtail formed within the leftrenal pelvis. Gentle contrast injection confirmed appropriatepositioning. The catheter was fixed to skin with silk suture andattached to gravity drainage. A sterile dressing was applied.The patient tolerated the procedure well and left the department instable condition.IMPRESSION:Impression:Successful ultrasound/fluoroscopic guided left percutaneous nephrostomycatheter placement as detailed above.Electronically Signed By: Chino Santos MD09/12/2023 16:29 CDTWorkstation Name: [id number] ABDOMEN/PELVIS WITH IV [id number] 14:27:51 [facility] 1990 Sex: MTECHNIQUE: CT of the abdomen and pelvis WITH intravenous contrast andWITHOUT oral contrast. Dose modulation, iterative reconstruction, and/orweight-based adjustment of the mA/kV was utilized to reduce theradiation dose to as low as reasonably achievable.INDICATION: Hydronephrosis.COMPARISON: Ultrasound from 09/11/2023.FINDINGS:LOWER THORAX: Unremarkable.HEPATOBILIARY: No focal hepatic lesions. Hyperdensematerial layers inthe gallbladder. No biliary ductal dilatation.SPLEEN: No splenomegaly.PANCREAS: No focal masses or ductal dilatation.ADRENALS: No adrenal nodules.KIDNEYS/URETERS: No hydronephrosis or masses. A left upper chest. Ostomycatheter is in place. A left mid ureteral stone measures 0.5 cm. Thereis mild relative hypoenhancement of the left kidney, consistent with therecent obstruction.4 nonobstructing right renal stones measure up to 0.3 cm.PELVIC ORGANS/BLADDER: The trace gas in the urinary bladder lumen ismost likely due to the recent procedure.PERITONEUM/RETROPERITONEUM: Trace free fluid in the pelvis. No free air.LYMPH NODES: No lymphadenopathy.VESSELS: Mild atherosclerotic calcification of the right common iliacartery.GI TRACT: No distention or wall thickening.BONES AND SOFTTISSUES: Unremarkable.IMPRESSION:1. A left percutaneous nephrostomy catheter is in place, and theleft-sided hydronephrosis has resolved. A left mid ureteral stonemeasures 0.5 cm.2. Nonobstructing right renal stones measure up to 0.3 cm.3. Trace pelvic ascites4. Likely sludge in the gallbladder without acute cholecystitisElectronically Signed By: Peyman Gil09/12/2023 14:30 CDTWorkstation Name: [id number] RENAL [id number] 08:34:29 [facility] 1990 Sex: MLIMITED RENAL ULTRASOUNDCLINICAL HISTORY: Evaluation for hydronephrosis noted on outside imagingnot available for review.IMPRESSION:There is mild left-sided hydronephrosis. The kidneys are otherwise normal in size and location with normalcortical thickness/echogenicity.Electronically Signed By: Chino Santos MD09/12/2023 08:37 CDTWorkstation Name: [id number] METABOLIC PANEL 2023-09-12 02:17:29* Test Item Value Reference Range Interpretation Comme nts TOTAL PROTEIN (BEAKER) (test code = 770) 7.3 gm/dL 6.0-8.3 ALBUMIN (BEAKER) (test code = 1145) 4.0 g/dL 3.5-5.0 ALKALINE PHOSPHATASE (BEAKER) (test code = 346) 83 U/L 40-150 BILIRUBIN TOTAL (BEAKER) (test code = 377) 1.3 mg/dL 0.2-1.2 H SODIUM (BEAKER) (test code = 381) 140 meq/L 136-145 POTASSIUM (BEAKER) (test code = 379) 4.5 meq/L 3.5-5.1 CHLORIDE (BEAKER) (test code = 382) 104 meq/L 98-107 CO2 (BEAKER) (test code = 355) 26 meq/L 22-29 BLOOD UREA NITROGEN (BEAKER) (test code = 354) 9 mg/dL 7-21 CREATININE (BEAKER) (test code = 358) 0.80 mg/dL 0.57-1.25 GLUCOSE RANDOM (BEAKER) (test code = 652) 97 mg/dL 70-105 CALCIUM (BEAKER) (test code = 697) 9.6 mg/dL 8.4-10.2 AST (SGOT) (BEAKER) (test code = 353) 16 U/L 5-34 ALT (SGPT) (BEAKER) (test code = 347) 26 U/L 6-55 EGFR (BEAKER) (test code = 1092) 122 mL/min/1.73 sq m Interpretation of eG FR values Stage Description Result G1 Normal or high >=90 G2 Mildly decreased 60-89 G3a Mildly to moderately 45-59 G3b Moderately to severely 30-44 G4 Severly decreased 15-29 G5 Kidney failure <15Reported eGFR is based on the CKD-EPI 2020 equation that does not use a race coefficientEstimated GFR is not as accurate as Creatinine Clearance in predicting glomerular filtration rate. Estimated GFR is not applicable for dialysis patients Cork Slabs Sawyer ID - ADMINPROTHROMBIN TIME/[id number] 02:06:29* Test Item Value Reference Range Interpretation Comme nts PROTIME (BEAKER) (test code = 759) 12.8 seconds 11.9-14.2 INR (BEAKER) (test code = 370) 0.95 <=5.90 RECOMMENDED COUMADIN/WARFARIN INR THERAPY RANGESSTANDARD DOSE: 2.0 - 3.0 Includes: PROPHYLAXIS for venous thrombosis, systemic embolization; TREATMENT for venous thrombosis and/or pulmonary embolus.HIGH RISK: Target INR is 2.5-3.5 for patients with mechanical heart valves.CBC W/PLT COUNT & AUTO DIFFERENTIAL 2023-09-12 01:58:36* Test Item Value Reference Range Interpretation Comme nts WHITE BLOOD CELL COUNT (BEAK ER) (test code = 775) 12.7 K/ L 3.5-10.5 H RED BLOOD CELL COUNT (BEAKER ) (test code = 761) 4.10 M/ L 4.63-6.08 L HEMOGLOBIN (BEAKER) (test co de = 410) 12.7 GM/DL 13.7-17.5 L HEMATOCRIT (BEAKER) (test co de = 411) 38.2 % 40.1-51.0 L MEAN CORPUSCULAR VOLUME (PAUL KER) (test code = 753) 93 fL 79-92 H MEAN CORPUSCULAR HEMOGLOBIN (BEAKER) (test code = 751) 31.0 pg 25.7-32.2 MEAN CORPUSCULAR HEMOGLOBIN CONC (BEAKER) (test code = 752) 33.2 GM/DL 32.3-36.5 RED CELL DISTRIBUTION WIDTH (BEAKER) (test code = 412) 13.6 % 11.6-14.4 PLATELET COUNT (BEAKER) (dionne t code = 756) 308 K/CU MM 150-450 MEAN PLATELET VOLUME (BEAKER ) (test code = 754) 9.4 fL 9.4-12.4 NUCLEATED RED BLOOD CELLS (BEAKER) (test code = 413) 0 /100 WBC 0-0 NEUTROPHILS RELATIVE PERCENT (BEAKER) (test code = 429) 69 % LYMPHOCYTES RELATIVE PERCENT (BEAKER) (test code = 430) 18 % MONOCYTES RELATIVE PERCENT (BEAKER) (test code = 431) 12 % EOSINOPHILS RELATIVE PERCENT (BEAKER) (test code = 432) 1 % BASOPHILS RELATIVE PERCENT (BEAKER) (test code = 437) 0 % NEUTROPHILS ABSOLUTE COUNT (BEAKER) (test code = 670) 8.74 K/ L 1.78-5.38 H LYMPHOCYTES ABSOLUTE COUNT (BEAKER) (test code = 414) 2.28 K/ L 1.32-3.57 MONOCYTES ABSOLUTE COUNT (BE LOLA) (test code = 415) 1.50 K/ L 0.30-0.82 H EOSINOPHILS ABSOLUTE COUNT (BEAKER) (test code = 416) 0.07 K/ L 0.04-0.54 BASOPHILS ABSOLUTE COUNT (BE LOLA) (test code = 417) 0.05 K/ L 0.01-0.08 IMMATURE GRANULOCYTES-RELATI VE PERCENT (BEAKER) (test code = 2801) 0.30 % 0.00-1.00 URINALYSIS W/ REFLEX URINE [id number] 15:38:01* Test Item Value Reference Range Interpretation Comme nts COLOR (BEAKER) (test code = 470) Trice CLARITY (BEAKER) (test code = 469) Hazy SPECIFIC GRAVITY UA (BEAKER) (test code = 468) 1.014 1.001-1.035 PH UA (BEAKER) (test code = 467) 7.0 5.0-8.0 PROTEIN UA (BEAKER) (test co de = 464) 30 mg/dL Negative A GLUCOSE UA (BEAKER) (test co de = 365) Negative Negative KETONES UA (BEAKER) (test co de = 371) 10 mg/dL Negative A BILIRUBIN UA (BEAKER) (test code = 462) Negative Negative BLOOD UA (BEAKER) (test code = 461) Large Negative A NITRITE UA (BEAKER) (test co de = 465) Negative Negative LEUKOCYTE ESTERASE UA (BEAKE R) (test code = 466) Small Negative A UROBILINOGEN UA (BEAKER) (te st code = 463) 0.2 0.2-1.0 RBC UA (BEAKER) (test code = 519) > /HPF WBC UA (BEAKER) (test code = 520) 22 /HPF MUCUS (BEAKER) (test code = 1574) Rare YEAST (BEAKER) (test code = 1585) Occasional SOURCE(BEAKER) (test code = 2795) Cork Slabs Sawyer ID - [auto]Cork Slabs Sawyer ID - tech(CELLAVISION MANUAL DIFF)2023-09-11 15:36:13* Test Item Value Reference Range Interpretation Comme nts NEUTROPHILS - REL (CELLAVISION)(BEAKER) (test code = 2816) 84 % LYMPHOCYTES - REL (CELLAVISION)(BEAKER) (test code = 2817) 11 % MONOCYTES - REL (CELLAVISION)(BEAKER) (test code = 2818) 4 % ATYPICAL LYMPHOCYTES - REL (CELLAVISION)(BEAKER) (test code = 2829) 1 % 0-0 H NEUTROPHILS - ABS (CELLAVISION)(BEAKER) (test code = 2830) 15.12 K/ul 1.78-5.38 H LYMPHOCYTES - ABS (CELLAVISION)(BEAKER) (test code = 2831) 1.98 K/ul 1.32-3.57 MONOCYTES - ABS (CELLAVISION)(BEAKER) (test code = 2832) 0.72 K/uL 0.30-0.82 ATYPICAL LYMPHOCYTES - ABS (CELLAVISION)(BEAKER) (test code = 2858) 0.18 K/uL 0.00-0.00 H TOTAL COUNTED (BEAKER) (test code = 1351) 100 RBC MORPHOLOGY (BEAKER) (dionne t code = 762) Normal SMUDGE CELLS (BEAKER) (test code = 1371) Present GIANT PLATELETS (BEAKER) (te st code = 313) Present PLATELET CONCENTRATION (CELLAVISION)(BEAKER) (test code = 3438) Adequate Cork Slabs Sawyer ID - Rani comments: Slide comments:COMPREHENSIVE METABOLIC PANEL 2023-09-11 15:14:17* Test Item Value Reference Range Interpretation Comme nts TOTAL PROTEIN (BEAKER) (test code = 770) 6.8 gm/dL 6.0-8.3 ALBUMIN (BEAKER) (test code = 1145) 3.8 g/dL 3.5-5.0 ALKALINE PHOSPHATASE (BEAKER) (test code = 346) 82 U/L 40-150 BILIRUBIN TOTAL (BEAKER) (test code = 377) 1.5 mg/dL 0.2-1.2 H SODIUM (BEAKER) (test code = 381) 141 meq/L 136-145 POTASSIUM (BEAKER) (test code = 379) 4.4 meq/L 3.5-5.1 CHLORIDE (BEAKER) (test code = 382) 107 meq/L 98-107 CO2 (BEAKER) (test code = 355) 27 meq/L 22-29 BLOOD UREA NITROGEN (BEAKER) (test code = 354) 8 mg/dL 7-21 CREATININE (BEAKER) (test code = 358) 0.89 mg/dL 0.57-1.25 GLUCOSE RANDOM (BEAKER) (test code = 652) 100 mg/dL 70-105 CALCIUM (BEAKER) (test code = 697) 9.4 mg/dL 8.4-10.2 AST (SGOT) (BEAKER) (test code = 353) 19 U/L 5-34 ALT (SGPT) (BEAKER) (test code = 347) 29 U/L 6-55 EGFR (BEAKER) (test code = 1092) 119 mL/min/1.73 sq m Interpretation of eG FR values Stage Description Result G1 Normal or high >=90 G2 Mildly decreased 60-89 G3a Mildly to moderately 45-59 G3b Moderately to severely 30-44 G4 Severly decreased 15-29 G5 Kidney failure <15Reported eGFR is based on the CKD-EPI 2020 equation that does not use a race coefficientEstimated GFR is not as accurate as Creatinine Clearance in predicting glomerular filtration rate. Estimated GFR is not applicable for dialysis patients Cork Slabs Sawyer ID - ADMINCBC W/PLT COUNT & AUTO [id number] 15:03:49* Test Item Value Reference Range Interpretation Comme nts WHITE BLOOD CELL COUNT (BEAK ER) (test code = 775) 18.0 K/ L 3.5-10.5 H RED BLOOD CELL COUNT (BEAKER ) (test code = 761) 4.06 M/ L 4.63-6.08 L HEMOGLOBIN (BEAKER) (test co de = 410) 12.7 GM/DL 13.7-17.5 L HEMATOCRIT (BEAKER) (test co de = 411) 38.1 % 40.1-51.0 L MEAN CORPUSCULAR VOLUME (PAUL KER) (test code = 753) 94 fL 79-92 H MEAN CORPUSCULAR HEMOGLOBIN (BEAKER) (test code = 751) 31.3 pg 25.7-32.2 MEAN CORPUSCULAR HEMOGLOBIN CONC (BEAKER) (test code = 752) 33.3 GM/DL 32.3-36.5 RED CELL DISTRIBUTION WIDTH (BEAKER) (test code = 412) 13.7 % 11.6-14.4 PLATELET COUNT (BEAKER) (dionne t code = 756) 314 K/CU MM 150-450 MEAN PLATELET VOLUME (BEAKER ) (test code = 754) 9.8 fL 9.4-12.4 NUCLEATED RED BLOOD CELLS (BEAKER) (test code = 413) 0 /100 WBC 0-0 [id number] 15:03:18* Test Item Value Reference Range Interpretation Comme nts PROTIME (BEAKER) (test code = 759) 13.0 seconds 11.9-14.2 INR (BEAKER) (test code = 370) 0.97 <=5.90 PARTIAL THROMBOPLASTIN TIME (BEAKER) (test code = 760) 32.4 seconds 22.5-36.0 RECOMMENDED COUMADIN/WARFARIN INR THERAPY RANGESSTANDARD DOSE: 2.0 - 3.0 Includes: PROPHYLAXIS for venous thrombosis, systemic embolization; TREATMENT for venous thrombosis and/or pulmonary embolus.HIGH RISK: Target INR is 2.5-3.5 for patients with mechanical heart valves.
--- NOTE | 2025-02-19 14:51 | EDPHYS ---
Physician Documentation [facility] Name: Reji Holloway Age: 35 yrs Sex: Male : 1990 Arrival Date: 02/19/2025 Time: 14:07 Bed 10 Private MD: ED Physician Dwayne Santos HPI: 02/19 20:31 This 35 yrs old Male presents to ER via Ambulatory with complaints of dr5 Laceration to the left wrist. 20:31 Patient is a 35-year-old male with no past medical history coming in with accidental dr5 cut from metal on the left anterior wrist. Patient states that he does not know his last tetanus injection. Patient denies numbness, tingling, decreased range of motion.. Historical: - Allergies: 14:48 No Known Allergies; iw - PMHx: 14:48 Kidney stone; iw - PSHx: 14:48 left nephrostomy; Lithotripsy; iw ROS: 20:31 Constitutional: as per hpi dr5 Exam: 20:31 Constitutional: This is a well developed, well nourished patient who is awake, alert, dr5 and in no acute distress. Head/Face: Normocephalic, atraumatic. Eyes: Pupils equal round and reactive to light, extra-ocular motions intact. Lids and lashes normal. Conjunctiva and sclera are non-icteric and not injected. Cornea within normal limits. Periorbital areas with no swelling, redness, or edema. Neck: Trachea midline, no thyromegaly or masses palpated, and no cervical lymphadenopathy. Supple, full range of motion without nuchal rigidity, or vertebral point tenderness. No Meningismus. Chest/axilla: Normal chest wall appearance and motion. Nontender with no deformity. No lesions are appreciated. Cardiovascular: Regular rate and rhythm with a normal S1 and S2. Normal PMI, no JVD. No pulse deficits. Respiratory: Lungs have equal breath sounds bilaterally, clear to auscultation. No rales, rhonchi or wheezes noted. No increased work of breathing, no retractions or nasal flaring. Back: No spinal tenderness. No costovertebral tenderness. Full range of motion. MS/ Extremity: Pulses equal, no cyanosis. Neurovascular intact. Full, normal range of motion. Neuro: Awake and alert, GCS 15, oriented to person, place, time, and situation. Cranial nerves II-XII grossly intact. Motor strength 5/5 in all extremities. Sensory grossly intact. Cerebellar exam normal. Normal gait. 20:31 Skin: injury, laceration(s), the wound is approximately 1 cm(s), with a depth of .2 cm(s), of the left wrist, MDM: 14:19 Medical Screening Exam initiated dr5 20:31 Differential Diagnosis Laceration, abrasion, contusion.. Data reviewed: vital signs, dr5 nurses notes. Consideration of Admission/Observation Escalation of care including admission/observation considered. Escalation considered patient found to have arterial bleed. I considered the following discharge prescriptions or medication management in the emergency department I discussed and recommended Over The Counter medications, Medications were administered in the Emergency Department. See MAR. Test considered but Not performed: Other Details Tetanus injection considered but patient refused. Care significantly affected by the following Social Determinants of Health: Poor access to healthcare and/or lack of insurance, Poor access to transportation, Problems related to employment. Counseling: I had a detailed discussion with the patient and/or guardian regarding the historical points, exam findings, and any diagnostic results supporting the discharge/admit diagnosis, the presence of at least one elevated blood pressure reading (>120/80) during this emergency department visit, the need for outpatient follow up, for definitive care, a family practitioner, to return to the emergency department if symptoms worsen or persist or if there are any questions or concerns that arise at home. Refusal of service: The patient/guardian displays adequate decision making capability and despite a detailed discussion of alternatives, benefits, risks, and consequences refuses: Laceration repair with stitches. ED course: Patient does not want stitches or tetanus injection. Steri-Strips applied with well approximation of wound. Recommended patient keep wound clean and dry. All questions answered. Strict ER precautions given.. Administered Medications: No medications were administered Disposition: 02/20 07:55 Co-signature as Attending Physician, Dwayne Santos MD I agree with the assessment and joce plan of care. Disposition Summary: 02/19/25 14:51 Discharge Ordered Notes: Location: Home dr5 Condition: Stable dr5 Diagnosis - Arm Laceration Left/ Open wound of forearm dr5 Followup: dr5 - With: Emergency Department - When: As needed - Reason: Worsening of condition Followup: dr5 - With: Private Physician - When: 1 - 2 days - Reason: Recheck today's complaints, Continuance of care, Re-evaluation by your physician Discharge Instructions: - Discharge Summary Sheet dr5 - Laceration Care, Adult dr5 Forms: - Medication Reconciliation Form dr5 - Antibiotic Education dr5 - Patient Portal Instructions dr5 - Leadership Thank You Letter dr5 Prescriptions: - Cephalexin 500 mg Oral Capsule - take 1 capsule ORAL route every 12 hours for 10 days; 20 capsule; Refills: 0, dr5 Product Selection Permitted Signatures: Dwayne Santos MD MD cha Williams, Irene, RN RN Richy So, LASHA-C FUR SEWER-Cdr5
--- NOTE | 2025-02-19 14:51 | ER ---
Nurse's Notes [facility] Name: Reji Holloway Age: 35 yrs Sex: Male : 1990 Arrival Date: 02/19/2025 Time: 14:07 Bed 10 Private MD: Diagnosis: Arm Laceration Left/ Open wound of forearm Presentation: 02/19 14:48 Chief complaint: Patient states: cut his left wrist on some metal. Coronavirus screen: iw At this time, the client does not indicate any symptoms associated with coronavirus-19. Ebola Screen: No symptoms or risks identified at this time. Initial Sepsis Screen: Does the patient meet any 2 criteria? No. Patient's initial sepsis screen is negative. Does the patient have a suspected source of infection? No. Patient's initial sepsis screen is negative. Risk Assessment: Do you want to hurt yourself or someone else? Patient reports no desire to harm self or others. Onset of symptoms was February 19, 2025. 14:48 Method Of Arrival: Ambulatory iw 14:48 Acuity: ADAL 4 iw Historical: - Allergies: 14:48 No Known Allergies; iw - PMHx: 14:48 Kidney stone; iw - PSHx: 14:48 left nephrostomy; Lithotripsy; iw ED Course: 14:16 Patient arrived in ED. iw 14:19 Richy Strickland FNP-C is [facility]. dr5 14:19 Dwayne Santos MD is Attending Physician. dr5 14:48 Triage completed. iw 14:48 Arm band placed on. iw Administered Medications: No medications were administered Outcome: 14:51 Discharge ordered by . dr5 15:24 Patient left the ED. kj2 Signatures: Chrissy Hirsch, RN RN Debbie Pollock RN RN kj2 Richy Strickland FNP-C PLATE STACKER-Cdr5
== END 2025-02-19 15:24 | disposition home or self-care (01) ==
LOC: ER 14:07
DX: S51.812A Laceration without foreign body of left forearm, initial encounter (principal)
CPT/HCPCS: 99281